=== PATIENT | female | born 2000 | race Caucasian/White ===

== ENCOUNTER 2024-09-12 17:02 | Emergency (ER) | payer BC, SELFPAY ==
--- NOTE | ~2024-09-12 | US_ITS ---
CLINICAL HISTORY: Epigastric pain. liver cbd panc only US abdomen limited Comparison: None Findings: The visualized pancreas is normal. The liver is normal in size and echotexture. There is no intrahepatic bile duct dilatation. The common duct is 3.1 mm in diameter. Status post cholecystectomy. Small cystic structure within the gallbladder fossa measuring 2.2 x 2.6 x 2.6 cm. There is no sonographic Quiles sign. The main portal vein is antegrade. IMPRESSION: Status post cholecystectomy. No evidence of intra or extrahepatic ductal dilation. A 2.6 cm cystic structure within the gallbladder fossa may represent remnant gallbladder or small ascites. No significant surrounding vascularity to suggest abscess however, not excluded. Clinically indicated, CT abdomen with contrast can be obtained for further evaluation. This document has been electronically signed by: Laxmi Love MD on 09/12/2024 19:15:08
--- NOTE | ~2024-09-12 | CT_ITS ---
CLINICAL HISTORY: Abd pain CT abdomen and pelvis with contrast Comparison: US - US ABDOMEN COMPLETE - 09/12/24 18:29 EDT Findings: No consolidation or effusion. Status post cholecystectomy. Remainder of the solid organs are within limits. Ultrasound demonstrated 2.6 cm cystic structure within the gallbladder fossa is likely the 2nd portion of the duodenum. No bowel obstruction, pneumoperitoneum, or pneumatosis. Pelvic contents unremarkable. Appendix is not definitely visualized however, no secondary signs of appendicitis. No acute fracture. IMPRESSION: No acute findings. Ultrasound demonstrated 2.6 cm cystic structure within the gallbladder fossa is likely the 2nd portion of the duodenum (Normal anatomy ). This document has been electronically signed by: Laxmi Love MD on 09/12/2024 21:13:59
[2024-09-12 17:12] VITALS: BP 154/89; PULSE 122; RESP 19; TEMP 36.6; O2SAT 98; BMI 24.4
--- NOTE | 2024-09-12 17:16 | ED.GENADULT ---
HPI - General Adult General Chief complaint: Nausea/Vomiting/Diarrhea Stated complaint: Vomiting every 30 Mins Time Seen by Provider: 09/12/24 18:22 History of Present Illness ED Provider: Dr. Montiel HPI narrative: 24 y/o F patient; without significant PMH; presents from home reporting NBNB nausea/vomiting, diarrhea, and RUQ abdominal pain for the last 3 days (started Friday09/10/2024). The patient denies: fever or chills, SOB, cough/congestion, known sick contacts. She denies recent travel. Hx cholecystectomy December 2023. She states she has been having ongoing GI symptoms since that time. She was seen by GI this month and had out-patient endoscopy/colonoscopy. She was told she has a hiatal hernia with mild gastric reflux, and started on Pantoprazole. She was told of her colonoscopy she may have IBS. She was started on an IBS medication which she states is not helping. She has also been seen at [facility] for an US Pelvis which she was told was reassuring. Related Data Allergies Allergy/AdvReac Type Severity Reaction Status Date / Time amoxicillin Allergy Rash Verified 09/12/24 17:15 silicone Allergy Rash Uncoded 09/12/24 17:15 Review of Systems Review of Systems: Yes all other systems are reviewed and are negative PMFSH Past Medical History Attestation statement: The following information was validated with the patient. Source: old records reviewed Physical Exam ED Vital Signs: Vital Signs - 24 hr 09/12/24 17:12 09/12/24 18:13 09/12/24 20:22 Temperature 98 F 98.7 F 99.4 F Pulse Rate 122 H 116 H 89 Respiratory Rate 19 18 16 Blood Pressure 154/89 H 124/86 114/77 Pulse Oximetry 98 97 97 Oxygen Delivery Method Room Air Room Air Room Air 09/12/24 21:54 09/12/24 21:55 Temperature 99.6 F 99.6 F Pulse Rate 107 H 107 H Respiratory Rate 18 18 Blood Pressure 103/63 103/63 Pulse Oximetry 100 100 Oxygen Delivery Method BMI result Body Mass Index 24.4 Patient is afebrile, tachycardic, and normotensive. Const General: cooperative and no acute distress HENMT Head: Yes normal to inspection and Yes atraumatic Eyes General: appearance normal, both eyes and all related structures Pupils: Equal, round and reactive pupils present EOM: EOMs intact bilaterally Neck Neck: Yes normal visual inspection, Yes full ROM, Yes supple and No tender Chest Chest palpation & inspection: normal inspection of the chest and normal palpation of entire chest wall Resp Effort & Inspection: normal respiratory effort, able to speak in complete sentences, no cough and no respiratory distress Auscultation: clear to auscultation bilaterally Cardio Rate: tachycardic Rhythm: regular rhythm Peripheral pulses: Peripheral pulses 2+ throughout GI Other: + RUQ abdominal tenderness Inspection: Yes normal to inspection, No Abdominal wall edema and No distended Palpation (GI): Soft to palpation, not firm, no guarding and not rigid Auscultation: normal bowel sounds Back/Spine/Pelvis Back: No back tenderness Neuro Cranial nerves: Yes Equal, round and reactive pupils present Course Course Course Narrative: 24 yold female presents to ED for abdominal pain nausea vomiting diarrhea since Friday. Patient denies any blood in stool. Patient denies any fever or chills. Positive for generalized abdominal pain. Labs ordered. Reevaluation(s) Reevaluation #1: Patient is afebrile, tachycardic, and normotensive. Reviewed diagnostic studies initiated in triage. Labs reviewed: Leukocytosis 21.3 with neutrophils 85.2. Hgb 17.1 Suspect some degree of dehydration and hemo-concentration. Bicarb 13. AST 289/ALT 209. Total bili 2.5. Lipase unremarkable Hcg negative. UA with trace ketones. LA 1.8. Negative betahydroxybuterate. Patient ordered for CT Abdomen/Pelvis. Providing 2L IVF. Providing droperidol for nausea. Plan to PO trial. CT Abdomen/Pelvis is unremarkable for acute pathology. Patient in summary has dehydration likely 2/2 to volume losses from nausea/vomiting/diarrhea. She received 2L IVF repletion. No baseline LFTs available for comparison. Patient tolerated the PO trial. I explained to the patient the emergency department did not find the cause of her GI symptoms today. She will need to continue her out-patient follow up, I recommended she call GI on Friday for a follow up appointment. Plan: Discharge to home with PCP and GI follow up Return precautions given Medications Administered Discontinued Medications Generic Name Dose Route Start Last Admin Trade Name Freq PRN Reason Stop Dose Admin Diphenhydramine HCl 12.5 mg 09/12/24 20:19 09/12/24 20:28 Diphenhydramine Hcl 50 Mg/Ml Vial IVPUSH 09/12/24 20:20 12.5 mg ONCE ONE Administration Droperidol 1.25 mg 09/12/24 20:19 09/12/24 20:28 Droperidol 5 Mg/2 Ml Vial IVPUSH 09/12/24 20:20 1.25 mg ONCE ONE Administration Sodium Chloride 1,000 mls @ 999 mls/hr 09/12/24 19:15 09/12/24 21:32 Ns IV 09/12/24 20:15 Infused .Q1H1M TAO Infusion Sodium Chloride 1,000 mls @ 999 mls/hr 09/12/24 19:30 09/12/24 21:32 Ns IV 09/12/24 20:30 Infused .Q1H1M TAO Infusion Iohexol 85 ml 09/12/24 19:29 09/12/24 19:29 Iohexol 350 Mg/Ml 100 Ml Infus..Btl IV 09/12/24 19:30 85 ml ONCE ONE Administration Ondansetron HCl 4 mg 09/12/24 17:45 09/12/24 17:47 Ondansetron Odt 4 Mg Tab.Rapdis TRANSLINGU 09/12/24 17:46 4 mg ONCE ONE Administration Medical Decision Making Lab Data 09/12/24 17:40 09/12/24 17:40 Labs: Lab Results 09/12/24 09/12/24 09/12/24 Range/Units 17:39 17:40 19:18 WBC 21.3 H (4.8-10.8) X10*3/uL RBC 5.54 H (4.20-5.50) X10*6/uL Hgb 17.1 H (12.0-16.0) g/dl Hct 47.7 H (37.0-47.0) % MCV 86.1 (80.0-98.0) fL MCH 30.9 (27.0-33.0) pg MCHC 35.8 H (31.0-35.0) g/dl RDW 13.1 (11.0-16.0) % Plt Count 253 (160-400) X10*3/uL MPV 9.9 (9.4-12.3) fL Immature Gran % (Auto) 0.5 H (0.0-0.4) % Neut % (Auto) 85.2 H (45-73) % Lymph % (Auto) 7.9 L (20-40) % [place] % (Auto) 5.5 (2-11) % Eos % (Auto) 0.6 (0-4) % Baso % (Auto) 0.3 (0-2) % Lymph # (Auto) 1.7 (1.2-4.9) X10*3/uL [place] # (Auto) 1.2 (0.1-1.2) X10*3/uL Eos # (Auto) 0.1 (0.0-0.4) X10*3/uL Baso # (Auto) 0.1 (0.0-0.2) X10*3/uL Abs Immat Gran (auto) 0.11 H (0.00-0.03) X10*3/uL Absolute Neuts (auto) 18.1 H (2.0-8.3) x10*3/uL Absolute Nucleated RBC 0.000 (0.0-0.012) X10*3/uL Nucleated RBC % (auto) 0.0 (0.0-0.2) /100WBC Sodium 139 (135-145) mmol/L Potassium 4.4 (3.3-5.1) mmol/L Chloride 111 H (96-108) mmol/L Carbon Dioxide 13 L (22-29) mmol/L Anion Gap 19 (12-20) BUN 10 (9-16) mg/dL Creatinine 0.75 (0.5-1.4) mg/dL Estim Creat Clear Calc 127.2 Estimated GFR > 60 Random Glucose 108 (60-115) mg/dL Lactic Acid 1.8 (0.5-2.0) mmol/L Calcium 9.5 (8.4-10.2) mg/dL Total Bilirubin 2.5 H (0.0-1.0) mg/dL Direct Bilirubin 0.6 H (0.0-0.5) mg/dL AST 289 H (5-31) U/L ALT 209 H (0-31) U/L Alkaline Phosphatase 132 H (39-117) U/L Total Protein 8.8 H (6.5-8.0) g/dL Albumin 4.5 (3.5-5.0) g/dL Lipase 29 (8-78) U/L Beta-Hydroxybutyrate 0.09 (0.02-0.27) mmol/L Beta HCG, Quant < 2 mIU/mL Urine Color Dark Yellow Urine Appearance Clear Urine pH 5.5 (5.0-9.0) Ur Specific [place] 1.025 (1.005-1.025) Urine Protein 30 (1+) H (Neg-Trace) mg/dL Urine Glucose (UA) Negative (Negative) mg/dL Urine Ketones Trace (Negative) mg/dL Urine Blood Small (1+) H (Negative) Urine Nitrite Negative (Negative) Ur Leukocyte Esterase Trace H (Negative) Urine RBC 6-10 H (0-2) /HPF Urine WBC 0-5 (0-5) /HPF Ur Squamous Epith Cells 6-10 (0-2) /HPF Urine Bacteria 1+ (None Seen) Hyaline Casts 3-5 (0-2) /LPF Urine Test NEGATIVE (NEGATIVE) Influenza Type A (PCR) NEGATIVE (Negative) Influenza Type B (PCR) NEGATIVE (Negative) RSV RNA Qual (PCR) NEGATIVE (Negative) SARS-CoV-2 RNA (RT-PCR) NEGATIVE (Negative) Radiology Impression Discussion of test interpretation with radiology: I have reviewed the radiologist's reading. Radiologist Impression: CLINICAL HISTORY: Epigastric pain. liver cbd panc only US abdomen limited Comparison: None Findings: The visualized pancreas is normal. The liver is normal in size and echotexture. There is no intrahepatic bile duct dilatation. The common duct is 3.1 mm in diameter. Status post cholecystectomy. Small cystic structure within the gallbladder fossa measuring 2.2 x 2.6 x 2.6 cm. There is no sonographic Quiles sign. The main portal vein is antegrade. IMPRESSION: Status post cholecystectomy. No evidence of intra or extrahepatic ductal dilation. A 2.6 cm cystic structure within the gallbladder fossa may represent remnant gallbladder or small ascites. No significant surrounding vascularity to suggest abscess however, not excluded. Clinically indicated, CT abdomen with contrast can be obtained for further evaluation. This document has been electronically signed by: Laxmi Love MD on 09/12/2024 19:15:08 Report Number: [id number]: Total DLP = 507.00 mGy-cm CLINICAL HISTORY: Abd pain CT abdomen and pelvis with contrast Comparison: US - US ABDOMEN COMPLETE - 09/12/24 18:29 EDT Findings: No consolidation or effusion. Status post cholecystectomy. Remainder of the solid organs are within limits. Ultrasound demonstrated 2.6 cm cystic structure within the gallbladder fossa is likely the 2nd portion of the duodenum. No bowel obstruction, pneumoperitoneum, or pneumatosis. Pelvic contents unremarkable. Appendix is not definitely visualized however, no secondary signs of appendicitis. No acute fracture. IMPRESSION: No acute findings. Ultrasound demonstrated 2.6 cm cystic structure within the gallbladder fossa is likely the 2nd portion of the duodenum (Normal anatomy ). This document has been electronically signed by: Laxmi Love MD on 09/12/2024 21:13:59 Discharge Plan Discharge Clinical Impression: Nausea & vomiting Patient Disposition: Home, Self-Care Instructions: Acute Nausea and Vomiting (ED) Additional Instructions: Please follow up with your primary doctor and GI doctor to discuss your recent emergency department visit and for re-evaluation. Interventions: ED Discharge Assessment Last Done: 09/12/24 21:55 Discharge Date/Time: 09/12/24 21:55 Print Language: Swedish
[2024-09-12 17:46] LABS: MANUAL DIFF FLAG NO
[2024-09-12] MEDS: Ondansetron ODT 4 MG TAB.RAPDIS TRANSLINGU (17:47)
[2024-09-12 17:48] LABS: Basophils Absolute Auto 0.1 X10*3/uL (0.0-0.2); Basophils Percent Auto 0.3 % (0-2); Eosinophils Absolute Auto 0.1 X10*3/uL (0.0-0.4); Eosinophils Percent Auto 0.6 % (0-4); Hematocrit 47.7 % (37.0-47.0); Hemoglobin 17.1 g/dl (12.0-16.0); Imm Gran Abs Auto 0.11 X10*3/uL (0.00-0.03); Imm Gran Pct Auto 0.5 % (0.0-0.4); Lymphocytes Absolute Auto 1.7 X10*3/uL (1.2-4.9); Lymphocytes Percent Auto 7.9 % (20-40); Mean Corpuscular HGB Conc 35.8 g/dl (31.0-35.0); Mean Corpuscular Hemoglobin 30.9 pg (27.0-33.0); Mean Corpuscular Volume 86.1 fL (80.0-98.0); Mean Platelet Volume 9.9 fL (9.4-12.3); Monocytes Absolute Auto 1.2 X10*3/uL (0.1-1.2); Monocytes Percent Auto 5.5 % (2-11); Neutrophils Absolute Auto 18.1 x10*3/uL (2.0-8.3); Neutrophils Percent Auto 85.2 % (45-73); Platelet Count 253 X10*3/uL (160-400); Red Blood Count 5.54 X10*6/uL (4.20-5.50); Red Cell Distribution Width 13.1 % (11.0-16.0); White Blood Count 21.3 X10*3/uL (4.8-10.8)
[2024-09-12 17:49] LABS: Appearance Urine Clear; Color Urine Dark Yellow; Glucose Urine UA Negative (Negative); Leukocyte Esterase Urine Trace (Negative); Nitrite Urine Negative (Negative); PH 5.5 (5.0-9.0); Specific Gravity - Urine 1.025 (1.005-1.025); UMIC TRIGGER UACC YES; Urine Blood Small (1+) (Negative); Urine Ketones Trace mg/dL (Negative); Urine Protein 30 (1+) mg/dL (Neg-Trace)
[2024-09-12 17:50] LABS: UPreg QC Valid YES; Urine Pregnancy NEGATIVE (NEGATIVE)
[2024-09-12 17:52] LABS: Bacteria Urine 1+ (None Seen); WBC Urine 0-5 /HPF (0-5)
[2024-09-12 18:10] LABS: Alanine Aminotransferase 209 U/L (0-31); Albumin Level 4.5 g/dL (3.5-5.0); Alkaline Phosphatase 132 U/L (39-117); Anion Gap 19 (12-20); Aspartate Amino Transferase 289 U/L (5-31); Bilirubin Total 2.5 mg/dL (0.0-1.0); Blood Urea Nitrogen 10 mg/dL (9-16); Calcium 9.5 mg/dL (8.4-10.2); Carbon Dioxide 13 mmol/L (22-29); Chloride 111 mmol/L (96-108); Creatinine Clr Calc Pharmacy 127.2; Estimated Glomerular Filt Rate > 60; Glucose Random 108 mg/dL (60-115); Lipase 29 U/L (8-78); Potassium 4.4 mmol/L (3.3-5.1); Sodium 139 mmol/L (135-145); Total Protein 8.8 g/dL (6.5-8.0)
[2024-09-12 18:13] VITALS: BP 124/86; PULSE 116; RESP 18; TEMP 37.1; O2SAT 97
[2024-09-12 18:16] LABS: HCG Quantitative < 2 mIU/mL
[2024-09-12 18:27] LABS: Influenza A PCR NEGATIVE (Negative); Influenza B PCR NEGATIVE (Negative); Resp Syncy Virus RNA Qual PCR NEGATIVE (Negative); SARS COV2 PCR INHOUSE NEGATIVE (Negative)
--- OUTSIDE RECORDS SUMMARY | 2024-09-12 18:27 | XMS_ITS | Patient Health Record ---
Author Organization [facility] Address [address] [place], [place] [id number] Care Team Providers Care Behavior Support Specialist Name Role Phone KAREY PATEL Primary Care Provider Allergies Allergen (clinical drug ingredient) Drug/Non Drug Allergy documented on EMR Reaction Allergy Type Onset Date Status amoxicillin Amoxicillin rash Drug Allergy Act stanislav Penicillin G Benzathine Unknown Drug Allergy Active Silicone Silicone rashes Allergy Active Results Component Value Reference Range Notes QUANTIFERON(R)-TB GOLD PLUS, 1 TUBE Reviewed date:08/02/2024 08:39:28 AM Interpretation: Performing Lab:[facility], [employer] [facility] [address] Montez Riley M.D. Notes/Report: 0 QUANTIFERON(R)-TB GOLD PLUS, 1 TUBE NEGATIVE NEGATIVE Negative test result. M. tuberculosis complex infection unlikely. NIL 0.03 MITOGEN-NIL >10.00 TB1-NIL 0.00 TB2-NIL <0.00 The Nil tube value reflects the background interferon gamma immune response of the patient's blood sample. This value has been subtracted from the patient's displayed TB and Mitogen results. Lower than expected results with the Mitogen tube prevent false-negative Quantiferon readings by detecting a patient with a potential immune suppressive condition and/or suboptimal pre-analytical specimen handling. The TB1 Antigen tube is coated with the M. tuberculosis-specific antigens designed to elicit responses from TB antigen primed CD4+ helper T-lymphocytes. The TB2 Antigen tube is coated with the M. tuberculosis-specific antigens designed to elicit responses from TB antigen primed CD4+ helper and CD8+ cytotoxic T-lymphocytes. For additional information, please refer to https://education.[employer]/faq/RDQ664 (This link is being provided for informational/ educational purposes only.) REFLEXIVE URINE CULTURE Reviewed date:07/29/2024 08:36:06 AM Interpretation: Performing Lab:[facility], [facility] [address] Montez Riley M.D. Notes/Report: 0; FASTING; 0; 0; 0; 0 REFLEXIVE URINE CULTURE NO C ULTURE INDICATED COPY(IES) SENT TO: Reviewed date:07/29/2024 03:32:51 PM Interpretation: Performing Lab: Notes/Report: 0; FASTING; 0; 0; 0; 0 COPY(IES) SENT TO: [email or web address] COPY TO [address] [address] TSH Reviewed date:07/29/2024 03:32:51 PM Interpretation: Performing Lab:[facility] [address] Montez Riley M.D. Notes/Report: 0; FASTING; 0; 0; 0; 0 TSH 2.48 Reference Range > or = 20 Years 0.40-4.50 Ranges First trimester 0.26-2.66 Second trimester 0.55-2.73 Third trimester 0.43-2.91 HEMOGLOBIN A1c Reviewed date:07/29/2024 08:36:06 AM Interpretation: Performing Lab:[facility] [address] Montez Riley M.D. Notes/Report: 0; FASTING; 0; 0; 0; 0 HEMOGLOBIN A1c 4.5 <5.7 % of total Hgb For the purpose of screening for the presence of diabetes: <5.7% Consistent with the absence of diabetes 5.7-6.4% Consistent with increased risk for diabetes (prediabetes) > or =6.5% Consistent with diabetes This assay result is consistent with a decreased risk of diabetes. Currently, no consensus exists regarding use of hemoglobin A1c for diagnosis of diabetes in children. According to [place] Diabetes Association (ADA) guidelines, hemoglobin A1c <7.0% represents optimal control in non- diabetic patients. Different metrics may apply to specific patient populations. Standards of Medical Care in Diabetes(ADA). URINALYSIS, COMPLETE W/REFLE X TO CULTURE Reviewed date:07/29/2024 08:36:05 AM Interpretation: Performing Lab:[facility], [employer] [facility] [address] Montez Riley M.D. Notes/Report: 0; FASTING; 0; 0; 0; 0 COLOR YELLOW YELLOW APPEARANCE CLEAR CLEAR SPECIFIC GRAVITY 1.007 1.001-1.035 PH 6.5 5.0-8.0 GLUCOSE NEGATIVE NEGATIVE BILIRUBIN NEGATIVE NEGATIVE KETONES NEGATIVE NEGATIVE OCCULT BLOOD NEGATIVE NEGATIVE PROTEIN NEGATIVE NEGATIVE NITRITE NEGATIVE NEGATIVE LEUKOCYTE ESTERASE NEGATIVE NEGATIVE WBC NONE SEEN < OR = 5 /HPF RBC NONE SEEN < OR = 2 /HPF SQUAMOUS EPITHELIAL CELLS 0-5 < OR = 5 /HPF BACTERIA NONE SEEN NONE SEEN /HPF HYALINE CAST NONE SEEN NONE SEEN /LPF NOTE This urine was analyzed for the presence of WBC, RBC, bacteria, casts, and other formed elements. Only those elements seen were reported. CBC (INCLUDES DIFF/PLT) Reviewed date:07/29/2024 08:36:05 AM Interpretation: Performing Lab:[facility], [employer] [facility] [address] Montez Riley M.D. Notes/Report: 0; FASTING; 0; 0; 0; 0 WHITE BLOOD CELL COUNT 10.1 3.8-10.8 Thousand/ uL RED BLOOD CELL COUNT 5.21 3.80-5.10 Million/uL HEMOGLOBIN 16.3 11.7-15.5 g/dL HEMATOCRIT 47.2 35.0-45.0 % MCV 90.6 80.0-100.0 fL MCH 31.3 27.0-33.0 pg MCHC 34.5 32.0-36.0 g/dL For adults, a slight decrease in the calculated MCHC value (in the range of 30 to 32 g/dL) is most likely not clinically significant; however, it should be interpreted with caution in correlation with other red cell parameters and the patient's clinical condition. RDW 12.6 11.0-15.0 % PLATELET COUNT 221 140-400 Thousand/uL MPV 10.5 7.5-12.5 fL ABSOLUTE NEUTROPHILS 5444 4002-5888 cells/uL ABSOLUTE LYMPHOCYTES 3939 850-3900 cells/uL ABSOLUTE MONOCYTES 576 200-950 cells/uL ABSOLUTE EOSINOPHILS 91 15-500 cells/uL ABSOLUTE BASOPHILS 51 0-200 cells/uL NEUTROPHILS 53.9 LYMPHOCYTES 39.0 MONOCYTES 5.7 EOSINOPHILS 0.9 BASOPHILS 0.5 COMPREHENSIVE METABOLIC PANE L Reviewed date:07/29/2024 03:32:50 PM Interpretation: Performing Lab:[facility], [employer] [address] Montez Riley M.D. Notes/Report: 0; FASTING; 0; 0; 0; 0 GLUCOSE 88 65-99 mg/dL Fasting reference interval UREA NITROGEN (BUN) 10 7-25 mg/dL CREATININE 0.64 0.50-0.96 mg/dL EGFR 129 > OR = 60 mL/min/1.73m2 BUN/CREATININE RATIO SEE NOTE: 6-22 (calc) Not Reported: BUN and Creatinine are within reference range. SODIUM 136 135-146 mmol/L POTASSIUM 3.8 3.5-5.3 mmol/L CHLORIDE 104 98-110 mmol/L CARBON DIOXIDE 23 20-32 mmol/L CALCIUM 9.3 8.6-10.2 mg/dL PROTEIN, TOTAL 8.0 6.1-8.1 g/dL ALBUMIN 4.7 3.6-5.1 g/dL GLOBULIN 3.3 1.9-3.7 g/dL (calc) ALBUMIN/GLOBULIN RATIO 1.4 1.0-2.5 (calc) BILIRUBIN, TOTAL 1.8 0.2-1.2 mg/dL ALKALINE PHOSPHATASE 89 31-125 U/L AST 19 10-30 U/L ALT 28 6-29 U/L LIPID PANEL WITH REFLEX TO D IRECT LDL Reviewed date:07/29/2024 03:32:50 PM Interpretation: Performing Lab:[facility] [address] Montez Riley M.D. Notes/Report: 0; FASTING; 0; 0; 0; 0 CHOLESTEROL, TOTAL 171 <200 mg/dL HDL CHOLESTEROL 37 > OR = 50 mg/dL TRIGLYCERIDES 98 <150 mg/dL LDL-CHOLESTEROL 114 Reference range: <100 Desirable range <100 mg/dL for primary prevention; <70 mg/dL for patients with CHD or diabetic patients with > or = 2 CHD risk factors. LDL-C is now calculated using the Melony calculation, which is a validated novel method providing better accuracy than the Friedewald equation in the estimation of LDL-C. Blake HERNANDEZ et al. RENEE. 2013;310(19): 9863-7787 (http://education.[employer]/faq/EKC881) CHOL/HDLC RATIO 4.6 <5.0 (calc) NON HDL CHOLESTEROL 134 <130 mg/dL (calc) For patients with diabetes plus 1 major ASCVD risk factor, treating to a non-HDL-C goal of <100 mg/dL (LDL-C of <70 mg/dL) is considered a therapeutic option. COPY(IES) SENT TO: Reviewed date:08/02/2024 08:39:28 AM Interpretation: Performing Lab: Notes/Report: 0 COPY(IES) SENT TO: [email or web address] COPY TO [address] [address] Reason For Referral Diagnosis 1 Generalized abdomina l pain (R10.84) Referral Organization [facility] Referring Provider First Name [facility] Referring Provider Last Name JANICE Y Referring Provider Speciality [facility] ctice Referred Provider Jolie Heath Referred Provider Specialty Gastroentero logy General Notes had bleeding per rec dereje with clots. Referral Priority Routine Reason Bleeding Per rectum , with clots Diagnosis 1 Noninfective gastroe nteritis and colitis, unspecified (K52.9) Diagnosis 2 Hemorrhage of anus a nd rectum (K62.5) Referral Organization [facility] Referring Provider First Name [facility] Referring Provider Last Name JANICE Y Referring Provider Speciality [facility] ctice Referred Provider Ginny Celeste Referred Provider Specialty Gastroentero logy Referral Priority Routine Medications Medication SIG (Take, Route, Frequency, Duration) Notes Start Date End Date Status medroxyPROGESTERone Acetate 150 MG/ML 1 ML INJECTED ONCE EVERY 3 MONTHS INTRAMUSCULAR for 84 Active Pantoprazole Sodium 20 MG 1 tablet Orall y Once a day Active Lexapro 10 MG 1 tablet Orally Once a day Active Immunizations Vaccine Route Administration Date Status Comme [facility] Mercaux-Pfizer Unknown 08/25/2020 Administered Covid-Pfizer Unknown 09/15/2020 Administered Influenza, seasonal, injectable, preservative free, 3 yrs and above IM Intramuscular 03/14/2021 Administered Influenza, seasonal, injectable, preservative free, 3 yrs and above IM Intramuscular 03/10/2023 Administered Influenza, seasonal, injectable, preservative free, 3 yrs and above IM Intramuscular 03/18/2024 Administered Tdap Unknown 07/25/2015 Administered Social History Tobacco Use: Social History Observation Description Date Details (start date - stop date) Never Smoker NA - NA Tobacco Use/Smoking Question Answer Notes Are you a nonsmoker Alcohol Screen (Audit-C) Question Answer Notes Did you have a drink containing alcohol in the p ast year? No Points 0 Interpretation Negative Sexual History Question Answer Notes Had sex in the past 12 months (vaginal, oral, or anal)? Yes with Men only Use protection? Yes How often? All of the time Prevention strategies discussed: Other Have you ever had a Sexually transmitted disease ? No Section Notes: occasional etoh occasional etoh occasional etoh Problems Problem Type SNOMED Code ICD Code Onset Dates Problem Status W/U Status Risk Notes Problem Non-toxic goiter (047762896) Nontoxic goiter, unspecified (E04.9) Active confirmed Problem Autoimmune thyroiditis (49728937) Autoimmune thyroiditis (E06.3) Active confirmed Problem Adjustment disorder with depressed mood (59630317) Adjustment disorder with depressed mood (F43.21) Active confirmed Problem Raynaud's disease (029529123) Raynaud's syndrome without gangrene (I73.00) Active confirmed Problem Interferon gamma assay positive (715407771) Nonspecific reaction to cell mediated immunity measurement of gamma interferon antigen response without active tuberculosis (R76.12) Active confirmed Vital Signs Heart Rate 95 /min 08/03/2024 Temperature 98 degrees Fahrenheit 08/03/2024 Oximetry 98 % 08/03/2024 Blood pressure diastolic 74 mm Hg 08/03/2024 Height 68.5 in 08/03/2024 Blood pressure systolic 108 mm Hg 08/03/2024 Weight 160.6 lbs 08/03/2024 BMI 24.06 kg/m2 08/03/2024 Encounters Encounter Location Date Provider Diagnosis [facility] [address] [place], [place] [id number] 09/16/2023 GAYETHRI NARAYANSWAMY [facility] [address] [place], [place] [id number] 12/12/2023 GAYETHRI NARAYANSWAMY Encounter for contraceptive management, unspecified Z30.9 [facility] [address] [place] [id number] 02/19/2024 GAYETHRI NARAYANSWAMY [facility] [address] [place] [id number] 03/09/2024 GAYETHRI NARAYANSWAMY Encounter for surveillance of contraceptives, unspecified Z30.40 [facility] [address] [place] [id number] 03/18/2024 GAYETHRI NARAYANSWAMY Encounter for immunization Z23 [facility] [address] [place] [id number] 06/09/2024 GAYETHRI NARAYANSWAMY Encounter for surveillance of contraceptives, unspecified Z30.40 [facility] [address] [place] [id number] 08/03/2024 GAYETHRI NARAYANSWAMY Encounter for general adult medical examination without abnormal findings Z00.00 ; Encounter for screening for depression Z13.31 ; Body mass index [BMI] 24.0-24.9, adult Z68.24 ; Hemorrhage of anus and rectum K62.5 and Noninfective gastroenteritis and colitis, unspecified K52.9 [facility] [address] [place], [place] [id number] 09/10/2024 GAYETHRI NARAYANSWAMY Encounter for contraceptive management, unspecified Z30.9 [facility] [address] [place] [id number] 04/21/2024 GAYETHRI NARAYANSWAMY [facility] [address] [place] [id number] 06/14/2024 GAYETHRI NARAYANSWAMY [facility] [address] [place] [id number] 06/16/2024 GAYETHRI NARAYANSWAMY [facility] [address] [place], [place] [id number] 07/28/2024 KAREY PATEL Encounter for general adult medical examination without abnormal findings Z00.00 and Nonspecific reaction to cell mediated immunity measurement of gamma interferon antigen response without active tuberculosis R76.12 [facility] [address] [place], [place] [id number] 08/02/2024 KAREY PATEL [facility] [address] [facility] [id number] 08/04/2024 KAREY PATEL Assessments Encounter Date Diagnosis (ICD Code) Assessment Notes Treatment Notes Treatment Clinical Notes Section Notes 12/12/2023 Encounter for contraceptive management, unspecified (ICD-10 - Z30.9) 03/09/2024 Encounter for surveillance of contraceptives, unspecified (ICD-10 - Z30.40) 03/18/2024 Encounter for immunization (ICD-10 - Z23) 06/09/2024 Encounter for surveillance of contraceptives, unspecified (ICD-10 - Z30.40) 07/28/2024 Encounter for general adult medical examination without abnormal findings (ICD-10 - Z00.00) 08/03/2024 Encounter for general adult medical examination without abnormal findings (ICD-10 - Z00.00) Well Visit, Ages 18 to 65: Care Instructions material was published Advised pt to exercise daily and eat a healthy diet. Advised pt to self exam breast once a month after . 08/03/2024 Encounter for screening for depression (ICD-10 - Z13.31) Learning About Depression Screening material was published Advised pt to exercise daily and eat a healthy diet. Advised pt to self exam breast once a month after . 09/10/2024 Encounter for contraceptive management, unspecified (ICD-10 - Z30.9) 08/03/2024 Body mass index [BMI] 24.0-24.9, adult (ICD-10 - Z68.24) Advised pt to exercise daily and eat a healthy diet. Advised pt to self exam breast once a month after . 07/28/2024 Nonspecific reaction to cell mediated immunity measurement of gamma interferon antigen response without active tuberculosis (ICD-10 - R76.12) 08/03/2024 Hemorrhage of anus and rectum (ICD-10 - K62.5) Advised pt to exercise daily and eat a healthy diet. Advised pt to self exam breast once a month after MC. 08/03/2024 Noninfective gastroenteritis and colitis, unspecified (ICD-10 - K52.9) Colitis: Care Instructions material was published Advised to eat soft , bland fiber rich diet. Advised pt to exercise daily and eat a healthy diet. Advised pt to self exam breast once a month after MC. Plan Of Treatment Pending Test Test Name Order Date Ultrasound : Abdomen, upper 07/26/2021 Ultrasound : Thyroid Sonography B-Scan 0 07/26/2021 HIV 1/2 ANTIGEN/ANTIBODY,FOURTH GENERATI ON W/RFL 03/18/2022 LIPID PANEL WITH REFLEX TO DIRECT LDL LIPID PANEL WITH REFLEX TO DIRECT LDL COMPREHENSIVE METABOLIC PANEL 03/18/2022 COMPREHENSIVE METABOLIC PANEL 07/21/2023 COMPREHENSIVE METABOLIC PANEL 03/30/2021 CBC (INCLUDES DIFF/PLT) 03/30/2021 CBC (INCLUDES DIFF/PLT) 03/18/2022 CBC (INCLUDES DIFF/PLT) 07/21/2023 URINALYSIS, COMPLETE W/REFLEX TO CULTURE 07/21/2023 URINALYSIS, COMPLETE W/REFLEX TO CULTURE 03/18/2022 RPR (DX) W/REFL TITER AND CONFIRMATORY T ESTING 03/18/2022 HEMOGLOBIN A1c 03/18/2022 HEMOGLOBIN A1c 07/21/2023 HEPATITIS B SURFACE ANTIGEN W/REFL CONFI RM 03/18/2022 HEPATITIS C AB W/REFL TO HCV RNA, QN, PC R 03/18/2022 TSH 03/18/2022 TSH 07/21/2023 TSH W/REFLEX TO FT4 03/30/2021 CHLAMYDIA/N. GONORRHOEAE RNA, TMA 2021 Insurance Providers Payer Name Payer Address Payer Phone Subscriber Number Group Number Insured Name Patient Relationship to Insured Coverage Start Date Coverage End Date [facility] [address] [place], [place] [id number] Elvira Ruffin Self - patient is the insured Medications Administered Medication Instructions Date of Administration Dosage Notes depo 12/14/2020 1 mL depo 03/14/2021 0.5 mL depo 06/13/2021 0.5 mL depo 09/13/2021 0.5 mL depo 12/13/2021 0.5 mL depo 03/18/2022 0.5 mL depo 06/17/2022 0.5 mL depo 09/13/2022 0.5 mL depo 12/06/2022 0.5 mL depo 03/10/2023 0.5 mL depo 06/11/2023 0.5 mL depo 09/16/2023 0.5 mL depo 12/12/2023 0.5 mL depo 03/09/2024 0.5 mL depo 06/09/2024 0.5 mL depo 09/10/2024 0.5 mL Medical (General) History Medical History History ICD Code Nonrheumatic mitral (valve) prolapse I34 .1 Autoimmune thyroiditis E06.3 Adjustment disorder with depressed mood F43.21 Surgical History Surgery Date(Month/Year) face surgery for broken left arm gall bladder 2023
--- OUTSIDE RECORDS SUMMARY | 2024-09-12 18:27 | XMS_ITS | Encounter Summary ---
Author Organization [facility] Address [address] [place] [address] Care Team Providers Care Topography Technician Name Role Phone Rao Katy HOLMAN Primary Care Provider Aki Liang MD Unavailable [phone] Katarina Ma DO Unavailable [phone] Aki Reyes MD Unavailable [phone] CreoleKatarina rubio DO Unavailable [phone] Pcp, No Primary Care Provider Unavailabl e Giuseppe Lee MD Primary Care Provider Giuseppe Lee MD Unavailable [phone] Giuseppe Lee MD Unavailable [phone] Giuseppe Lee MD Unavailable [phone] Giuseppe Lee MD Unavailable [phone] Encounter Details Date Type Department Care Team (Late st Contact Info) Description 04/06/2018 Scanned Document [facility] [address] [place] [address] Provider, Generic Social History Tobacco Use Types Packs/Day Years Used Date Smoking Tobacco: Never Smokeless Tobacco: Never Alcohol Use Standard Drinks/Week Comments No 0 (1 standard drink = 0.6 oz pur e alcohol) AUDIT-C Answer Date Recorded Frequency of Alcohol Consumption Never 04/06/2018 Average Number of Drinks Not on file 018 Frequency of Binge Drinking Not on file 03/19 Comments No Sex and Gender Information Value Date Recorded Sex Assigned at Female 2022 11:34 AM EDT Legal Sex Female 8:13 AM EDT Gender Identity Female 2022 11:34 AM EDT Sexual Orientation Heterosexual (straight) 08/13 11:34 AM EDT documented as of this encounter Functional Status documented as of this encounter Plan of Treatment Not on file documented as of this encounter Visit Diagnoses Not on filedocumented in this encounter Care Teams Topography Technician Relationship Specialty Start Date End Date Katy Yeh APRN PCP - General Family Medicine 04/06/18 03/15/20 Aki Reyes MD [address] [place] [address] PCP - [employer] Attributed 02/16/19 05/18/19 Katarina Ma DO [address] [place] [address] PCP - [employer] Attributed 05/19/19 08/17/19 Aki Reyes MD [address] [place] [address] PCP - [employer] Attributed 08/18/19 11/16/19 Katarina Ma DO [address] [place] [address] PCP - [employer] Attributed 11/17/19 08/16/20 Pcp, No PCP - General General Medicine 05/29/20 07/31/20 [place] [address] [place] [address] PCP - General Family Medicine 08/01/20 Giuseppe Lee MD [address] [facility] [place] [address] PCP - [employer] Attributed 08/17/20 04/17/21 Giuseppe Lee MD [address] [place] [address] PCP - [place] [employer] Attributed 09/16/21 10/16/21 Giuseppe Lee MD [address] [place] [address] PCP - [place] [employer] Attributed 11/16/21 03/18/22 Giuseppe Lee MD [address] [place] [address] PCP - [place] [employer] Attributed 05/19/22 documented as of this encounter
--- OUTSIDE RECORDS SUMMARY | 2024-09-12 18:27 | XMS_ITS | Clinical Summary ---
Author Organization [facility] Address [address] [place] [address] Phone Care Team Providers Care Customer Development Manager Name Role Phone Giuseppe Lee MD Primary Care Provider Allergies Active Allergy Reactions Criticality Noted Date Comments Adhesive Tape-Silicones Rash Medium 07/31/2024 Amoxicillin Rash Medium 07/31/2024 Medications escitalopram (LEXAPRO) 10 mg tablet Take 1 tablet (10 mg total) by mouth 1 (one) time each day. Active Active Problems Problem Noted Date Diagnosed Date Rectal bleeding 07/31/2024 Encounters Date Type Department Care Team Description 07/31/2024 10:22 AM EDT - 07/31/2024 12:07 PM EDT Emergency [facility] Emergency [address] [place] [address] Angel Roe MD Rectal bleeding (Primary Dx) Discharge Disposition: Home or Self Care from Last 3 Months Immunizations Name Administration Dates Next Due Pfizer SARS-CoV-2 COVID-19, mRNA, LNP-S, preservative free 09/15/2020,08/25/2020 Social History Tobacco Use Types Packs/Day Years Used Date Smoking Tobacco: Never Assessed Comments Unknown Sex and Gender Information Value Date Recorded Sex Assigned at Not on file Legal Sex Female 7:54 PM EST Gender Identity Not on file Sexual Orientation Not on file Obstetrics History Last Filed Vital Signs Vital Sign Reading Time Taken Comments Blood Pressure 129/90 07/31/2024 10:17 AM EDT Pulse 85 07/31/2024 10:17 AM EDT Temperature 37.2 ??C (99 ??F) 07/31/2024 10:17 AM EDT Respiratory Rate 16 07/31/2024 10:17 AM EDT Oxygen Saturation 99% 07/31/2024 10:17 AM EDT Inhaled Oxygen Concentration - - Weight 65.3 kg (144 lb) 02/04/2023 1:16 PM EDT Height 175.3 cm (5' 9 ) 02/04/2023 1:16 PM EDT Body Mass Index 21.27 02/04/2023 1:16 PM EDT Plan of Treatment Health Maintenance Due Date Last Done Comments Gonorrhea/Chlamydia Screening 2002 HPV Vaccines (1 - Risk 3-dos e series) 2013 Meningococcal B Vaccine (1 o f 2 - Standard) 2018 COVID-19 Vaccine (3 - Pfizer risk series) 10/13/2020 09/15/2020, 08/25/2020 Hepatitis B Vaccines (1 of 3 - 19+ 3-dose series) 2021 Pneumococcal Vaccine: Pediatrics (0 to 5 Years) and At-Risk Patients (6 to 64 Years) (1 of 2 - PCV) 2021 Depression Screening 04/20/2022 HIV Screening 04/20/2022 Hepatitis C Screening 04/20/2022 Social Influencers of Health Screening 04/20/2022 Cervical Cancer Screening: P ap Smear 08/14/2023 DTaP,Tdap,and Td Vaccines (2 - Td or Tdap) 07/24/2025 07/25/2015 Meningococcal ACWY Vaccine Completed 04/07/2019 Influenza Vaccine Completed 03/18/2024, 03/10/2023, 03/14/2021 HIB Vaccines Aged Out No longer eligi ble based on patient's age to complete this topic Hepatitis A Vaccines Aged Out No long er eligible based on patient's age to complete this topic IPV Vaccines Aged Out No longer eligi ble based on patient's age to complete this topic MMR Vaccines Aged Out No longer eligi ble based on patient's age to complete this topic RSV Immunization Patients Under 20 months Aged Out No longer eligible b ased on patient's age to complete this topic Varicella Vaccines Aged Out No longer eligible based on patient's age to complete this topic Procedures Procedure Name Priority Date/Time Associated Diagnosis Comments POCT VENOUS NA, K, HH Routine 07/31/2024 11:18 AM EDT from Last 3 Months Results * POCT VENOUS NA, K, HH (07/31/2024 11:18 AM EDT) Sodium Venous POCT 142 135 - 145 mmol/L 07/31/2024 11:20 AM EDT [facility] Potassium Venous POCT 4.1 3.5 - 5.1 mmol/L 07/31/2024 11:20 AM EDT [facility] Hemoglobin Venous POCT 15.0 12.5 - 16.0 g/dL 07/31/2024 11:20 AM EDT [facility] Hematocrit Venous POCT 44 37 - 47 % 07/31/2024 11:20 AM EDT [facility] Blood Venous blood specimen / Unknown 07/31/2024 11:18 AM EDT 07/31/2024 11:21 AM EDT us Angel Roe MD LAB POINT OF CARE TE ST DOCKED DEVICE UNSOLICITED RESULTS Final Result [facility] [address] [place] [address], from Last 3 Months Insurance * Guarantor: Elvira Lizarraga Account Type Relation to Patient Date of Phone Billing Address Personal/Family Self 2000 [address] [place] [address] [place] ([facility]) Care Teams Customer Development Manager Relationship Specialty Start Date End Date Giuseppe Lee MD [address] [place] [address] PCP - General Family Medicine 07/31/24
--- OUTSIDE RECORDS SUMMARY | 2024-09-12 18:27 | XMS_ITS | Data Portability ---
Author Organization [place] - [facility]'s [facility], [facility] Address [address] [place] [address] Care Team Providers Care Lodging Facilities Manager Name Role Phone KAREY PATEL Primary Care Provider Saida vailable Assessment Encounter Date Assessment Date Assessment LastModified by Organization Details LastModified Time 08/07/2018 08/07/2018 17-year-old G0 presents for pill check. BP within normal limits. ACHES reviewed again. Discussed condom use when becoming sexually active for the prevention of STDs. Will continue her lo Loestrin FE. TOTAL TIME 10 MIN Return annually for well woman care Not available 08/07/2018 16:17:07 05/10/2019 05/10/2019 18-year-old G0 presents for annual. Basic physical exam WNL, the patient declined a pelvic exam today. Breast self-awareness/ breast exams discussed Aches reviewed, refill for OCP sent Return annually for well care [email or web address] Not available 05/10/2019 13:15:51 05/21/2023 05/21/2023 22 year old female presents for her annual well woman exam HIGH WIRE ARTIST exam WNL, internal pelvic exam deferred GC/CT collected Discussed recurrent vaginitis and microbiota. Reviewed boric acid and proflora gel (will call if proflora desired). Depo for control; discussed weight gain with this method RTO annually [email or web address] Not available 05/21/2023 11:26:21 04/27/2024 04/27/2024 Unclear etiology for her current intermittent pelvic pain, but suspect some level og GI involvement as she is having stool changes and diffuse abdominal pain as well. No palpable abnormality on pelvic exam. Reviewed possibility of infection or ovarian cyst contributing to her symptoms. Vaginal swab done and she will be called with abnormal results. Reviewed ovarian cysts can be common and typically resolve without intervention but discussed need for ED evaluation for severe pain nausea/vomiting . If her symptoms become more consistent, would consider pelvic imaging here as outpatient. [email or web address] Not available 04/27/2024 12:46:41 06/18/2024 06/18/2024 23 year old female presents for her annual well woman exam HIGH WIRE ARTIST exam WNL Pap collected with GC/CT Persistent RLQ pain; TVUS ordered Recurrent BV; Recommended oral probiotics and vaginal boric acid for prevention. Given paper on using boric acid safely. RTO annually [email or web address] Not available 06/18/2024 16:28:42 Plan of Treatment Reminders Order Date Submit Date Provider Last Modified By Organization Details Last Modified Time Details Appointments None recorded. Lab pap, LB + HPV 2024 025 [facility], [address] [place] [address], [id number] 5 09:34:06 bacterial vaginosis + vaginitis panel, vaginal 2023 024 [facility], [address] [place] [address], [id number] 4 10:05:01 CT + NG DNA, PCR, unspecified specimen 2023 024 [facility], [address] [place] [address], [id number] 4 09:08:02 Referral None recorded. Procedures None recorded. Surgeries None recorded. Imaging None recorded. Medication Orders Lo Loestrin Fe 1 mg-10 mcg (24)/10 mcg (2) tablet 2018 019 [email or web address] [id number], [address] [place], [address], 4 10:59:16 Patient TargetsNo targets recorded. Patient Instructions Encounter Date Encounter Id Patient Instructions Last Modified By Organization Details Last Modified Time 05/10/2019 [id number] Counseled regarding prevention of STD's/ Counseled regarding contraceptive options. Offered condoms. Discussed avoiding domestic violence/abusive relationships and coercion. Counseled regarding HPV vaccine, Elvira has had her shots. Advised avoidance of tobacco, alcohol and drugs. [email or web address] Not available 05/10/2019 13:16:48 05/21/2023 [id number] Counseled regarding prevention of STD's/ Counseled regarding contraceptive options. BSA reviewed [email or web address] Not available 05/21/2023 11:25:41 Reason for Referral None Reported. Results Created Date Observation Date Name Description Value Unit Range Abnormal Flag Note LastModifiedBy Organization Detail LastModifiedTime 05/21/19 24 05/21/2023 CHLAM YDIA/ GONOR RHOEA E RNA, TMA neisseria gonorrhoeae RNA, tma Negati ve negati ve The perfo rmanc e of endoc ervic al, vagin al, and male ureth ral swab speci mens, male and femal e urine speci mens, and Prese rvCyt Solut ion liqui d Pap speci mens has not been evalu ated in adole scent s less than 16 years of age. Not Available [facility] [address] [place], [address] 05/22/2023 09:08:02 05/21/19 24 05/21/2023 CHLAM YDIA/ GONOR RHOEA E RNA, TMA chlamydia trachomatis RNA, tma Negati ve negati ve The perfo rmanc e of endoc ervic al, vagin al, and male ureth ral swab speci mens, male and femal e urine speci mens, and Prese rvCyt Solut ion liqui d Pap speci mens has not been evalu ated in adole scent s less than 16 years of age. Not Available [facility] [address] [place], [address] 05/22/2023 09:08:02 04/27/20 24 04/27/2024 ADVAN ADILENE BACTE RIAL VAGIN OSIS (BV), TMA adv bacterial vaginosis (bv), tma Positi ve negati ve abnormal Not Available [facility] [address] [place], [address] 04/28/2024 10:05:01 04/27/20 24 04/27/2024 ADVAN ADILENE SANDRA DA VAGIN ITIS (CV)/ TRICH OMONA S VAGIN TINA (TV), TMA mathieu species Negati ve negati ve Not Available [facility] [address] [place], [address] 04/28/2024 10:05:02 04/27/20 24 04/27/2024 ADVAN ADILENE SANDRA DA VAGIN ITIS (CV)/ TRICH OMONA S VAGIN TINA (TV), TMA mathieu glabrata Negati ve negati ve Not Available [facility] [address] [place], [address] 04/28/2024 10:05:02 04/27/20 24 04/27/2024 ADVAN ADILENE SANDRA DA VAGIN ITIS (CV)/ TRICH OMONA S VAGIN TINA (TV), TMA trichomonas vaginalis (TV), tma Negati ve negati ve Not Available [facility] [address] [place], [address] 04/28/2024 10:05:02 04/27/20 24 04/27/2024 CHLAM YDIA/ GONOR RHOEA E RNA, TMA neisseria gonorrhoeae RNA, tma Negati ve negati ve The perfo rmanc e of endoc ervic al, vagin al, and male ureth ral swab speci mens, male and femal e urine speci mens, and Prese rvCyt Solut ion liqui d Pap speci mens has not been evalu ated in adole scent s less than 16 years of age. Not Available [facility] [address] [place], [address] 04/28/2024 10:05:02 04/27/20 24 04/27/2024 CHLAM YDIA/ GONOR RHOEA E RNA, TMA chlamydia trachomatis RNA, tma Negati ve negati ve The perfo rmanc e of endoc ervic al, vagin al, and male ureth ral swab speci mens, male and femal e urine speci mens, and Prese rvCyt Solut ion liqui d Pap speci mens has not been evalu ated in adole scent s less than 16 years of age. Not Available [facility] [address] [place], [address] 04/28/2024 10:05:02 06/18/19 25 06/18/2024 THINP REP PAP TEST (IMAG ER) WITH HPV REFLE X, GC/CH LAMYD IA report Report Final Gynec ologi jese Cytol ogy Repor t ----- ----- ----- ----- ----- ----- ----- ----- ----- ----- ----- ----- ThinP rep Pap Test with HPV Refle x, CLIFTON/Ch michael ia SPECI MEN ADEQU ACY: SATIS FACTO RY FOR EVALU ATION ; ENDOC ERVIC AL/TR ANSFO RMATI ON ZONE COMPO NENT ABSEN T/INS [facility] IENT . INTER PRETA TION: NEGAT NICOLLE FOR INTRA EPITH ELIAL LESIO N OR ZINA TANNER . React nicolle cellu abelardo lange es assoc iated with infla mmati on Elect ramya Yoo d: Palak Walters (ASCP ) Elect ramya Yoo d: Ela Plaza MD ----- ----- ----- ----- ----- ----- ----- ----- ----- ----- ----- ----- CLINI JESE INFOR MATIO N: LMP: NG Clini jese Histo ry: NG Biops y Date: NG Speci men Sourc e: Cervi x, Endoc ervix Previ ous Pap Date: NG CPT Codes : 26739 , 04715 ICD Codes : Z01.4 19 Not Available [facility] [address] [place], [address] 06/29/2024 09:34:06 06/18/19 25 06/18/2024 CHLAM YDIA TRACH OMATI S RNA, TMA chlamydia trachomatis RNA, tma Negati ve negati ve The perfo rmanc e of endoc ervic al, vagin al, and male ureth ral swab speci mens, male and femal e urine speci mens, and Prese rvCyt Solut ion liqui d Pap speci mens has not been evalu ated in adole scent s less than 16 years of age. Not Available [facility] [address] [place], [address] 06/29/2024 09:34:40 06/18/19 25 06/18/2024 NEISS ERIA GONOR RHOEA E RNA, TMA neisseria gonorrhoeae RNA, tma Negati ve negati ve The perfo rmanc e of endoc ervic al, vagin al, and male ureth ral swab speci mens, male and femal e urine speci mens, and Prese rvCyt Solut ion liqui d Pap speci mens has not been evalu ated in adole scent s less than 16 years of age. Not Available [facility] [address] [place], [address] 06/29/2024 09:34:41 06/28/19 25 06/28/2024 US, pelvi s, trans abdom inal + trans vagin al RAD [email or web address] Not Available 07/01/2024 18:32:20 Result Notes None recorded. Problems Name Problem SNOMED Code Status Onset Date Resolution Date Notes Provider Name and Address Organization Details Recorded Time Anxiety 57976652 Active 025 lexapro in 2024 JENNA WEST CNM 175 [facility], [address] [place] [address], [phone] , [facility] 16:26:40 Problem Notes None recorded. Procedures Surgical History Date Name Laterality Status Provider Name and Address Organization Details Recorded Time 06/18/19 25 Date of [facility] 16:11:28 12/18/19 24 cholecystectomy completed Yumiko Potash [facility] 04/27/2024 12:00:50 05/19/19 24 Cholecystectomy completed Yumiko Potash [facility] 06/18/2024 15:59:38 Orthopedic Surgery completed TAD PUGH LPN 175 [facility], [address] [place] [address], [phone], [facility] 04/23/2018 16:13:42 Other completed TAD PUGH LPN 175 [facility], [address] [place] [address], [phone], [facility] 04/23/2018 16:14:11 Imaging Results Imaging Date Name Status LastModified by Organization Details LastModified Time 06/28/2024 US, pelvis, transabdominal + transvaginal completed [email or web address] Information not available 07/01/2024 18:32:20 Procedure Notes None recorded. Medical Equipment None Reported. Allergies Allergen ID Allergen Name Allergen Category Reaction Reaction Severity Criticality Documentation Date Start Date Code Code System Note Provider Name and Address Organization Details Recorded Time [id number] metronida zole medicatio n vomiting moderate Not available 05/21/2023 6922 RxNorm OMG1 NURSE 175 [facility], [address] [place] [address], [place], [address], [facility] 4 10:59:16 6681907 amoxicill in medicatio n rash moderate Not available 05/21/2023 723 RxNorm OMG1 NURSE 175 [facility], [address] [place] [address], [place], [place], [address] [place] [address] 4, [facility] 4 10:59:16 Medications Name Sig Start Date Stop Date Status Note LastModified by Organization Details LastModified Time status covid-19/fl u a-b antigen tst TEST DIRECTED TODAY active Not Available Not Available No t Available doxycycline hyclate 100 mg capsule TAKE ONE CAPSULE TWICE DAILY FOR FIRST DAY, THEN ONCE DAILY FOR 7 DAYS 04/24 completed Not Available Not Available Not Available cetirizine 10 mg tablet TAKE 1 TABLET BY MOUTH EVERY DAY 04/24 completed Not Available Not Available Not Available fluconazole 150 mg tablet TAKE 1 TABLET BY MOUTH ONCE. MAY TAKE 2ND PILL 2 DAYS LATER IF SYMPTOMS PERSIST 04/24 completed Not Available Not Available Not Available clarithromy valentina 500 mg tablet TAKE 1 TABLET BY MOUTH TWICE A DAY 04/24 completed Not Available Not Available Not Available metronidazo le 0.75 % (37.5 mg/5 gram) vaginal gel Insert 1 applicato rful every day by vaginal route at bedtime for 5 days. 06/17 completed Not Available Not Available Not Available metronidazo le 500 mg tablet TAKE 1 TABLET BY MOUTH TWICE A DAY DO NOT CONSUME ALCOHOL WHILE TAKING THIS PRODUCT 05/20 completed Not Available Not Available Not Available ciprofloxac in 250 mg tablet TAKE 1 TABLET BY MOUTH TWICE A DAY FOR 3 DAYS 04/24 completed Not Available Not Available Not Available acetaminoph en 500 mg tablet TAKE 2 TABLETS BY MOUTH EVERY 6 HOURS NEEDED FOR MILD-MODE RATE PAIN 04/24 completed Not Available Not Available Not Available pantoprazol e 40 mg tablet,michelle yed release TAKE 1 TABLET BY MOUTH HALF HOUR BEFORE BREAKFAST 04/24 completed Not Available Not Available Not Available docusate sodium 100 mg capsule 100 MG TWICE A DAY 04/24 completed Not Available Not Available Not Available cephalexin 500 mg tablet 05/10 completed Not Available Not Available Not Available clindamycin 2 % vaginal cream Insert 1 applicato rful every day by vaginal route at bedtime for 7 days. 06/17 completed Not Available Not Available Not Available ondansetron 4 mg disintegrat ing tablet PLEASE SEE ATTACHED FOR DETAILED DIRECTION S 04/24 completed Not Available Not Available Not Available fluticasone propionate 50 mcg/actuati on nasal spray,suspe nsion SPRAY 2 SPRAYS INTO EACH NOSTRIL EVERY DAY 04/24 completed Not Available Not Available Not Available fludrocorti sone 0.1 mg tablet TAKE 1 TABLET BY MOUTH TWICE A DAY 04/24 completed Not Available Not Available Not Available oxycodone 5 mg tablet TAKE 1 OR 2 TABLETS BY MOUTH EVERY 4 HOURS NEEDED FOR MODERATE TO SEVERE PAIN 04/24 completed Not Available Not Available Not Available medroxyprog esterone 150 mg/mL intramuscul ar syringe 1 ML INJECTED ONCE EVERY 3 MONTHS INTRAMUSC ULAR active Not Available Not Available No t Available escitalopra m 10 mg tablet active Not Available Not Available Not Available levocetiriz ine 5 mg tablet TAKE 1 TABLET BY MOUTH EVERY DAY IN THE EVENING 30 DAYS 04/24 completed Not Available Not Available Not Available Lo Loestrin Fe 1 mg-10 mcg (24)/10 mcg (2) tablet Take 1 tablet every day by oral route as directed. 05/20 completed Not Available Not Available Not Available Vitals Date Recorded Body height Body mass index (BMI) [Percentile] Per age and sex Body mass index (BMI) Body weight Systolic blood pressure Diastolic blood pressure Provider Name and Address Organization Details Last Updated DateTime 9 173.99 cm 47 % 20.2 kg/m2 13428.3 3 g 114 mm[Hg] 80 mm[Hg] Hetal Edwards [facility] 9 15:59:47 Date Recorded Body height Body mass index (BMI) Body mass index (BMI) [Percentile] Per age and sex Body weight Systolic blood pressure Diastolic blood pressure Provider Name and Address Organization Details Last Updated DateTime 9 173.99 cm 19.4 kg/m2 31 % 53469.8 5 g 128 mm[Hg] 84 mm[Hg] Hetal Edwards [facility] 9 13:02:07 Date Recorded Body height Body mass index (BMI) [Percentile] Per age and sex Body mass index (BMI) Body weight Heart rate Systolic blood pressure Diastolic blood pressure Provider Name and Address Organization Details Last Updated DateTime 4 173.99 cm 65 % 23.3 kg/m2 71780.5 4 g 91 /min 114 mm[Hg] 81 mm[Hg] OMG1 NURSE 175 [facility], [address] [place], [address], [facility] 4 10:58:36 Date Recorded Body height Body mass index (BMI) Body weight Systolic blood pressure Diastolic blood pressure Provider Name and Address Organization Details Last Updated DateTime 04/27/2024 173.99 cm 24.3 kg/m2 16966.96 g 114 mm[Hg] 82 mm[Hg] Yumiko Potash [facility] 4 11:59:22 Date Recorded Body height Body mass index (BMI) Body weight Systolic blood pressure Diastolic blood pressure Provider Name and Address Organization Details Last Updated DateTime 06/18/2024 173.99 cm 24.5 kg/m2 73806.71 g 121 mm[Hg] 81 mm[Hg] Yumiko Potash [facility] 5 16:06:41 Social History Question Answer Notes LastModified by Organizat ion Details LastModified Time Tobacco Smoking Status Never Smoker TAD PUGH LPN 175 [facility], [address] [place], [address], [facility] 04/23/2018 16:12:43 What Is Your Level Of Alcohol Consumption? None Information not available 04/23/2018 Education 10 Informati on not available 05/21/2023 What Is The Highest Grade Or Level Of School You Have Completed Or The Highest Degree You Have Received? [id number] Information not available 05/21/2023 Do You Have Any Children? No Information not available 04/23/2018 Does Your Partner Physically Hurt You Or Threaten To Hurt You? No Information not available 04/23/2018 Has Your Partner Forced You To Have Sex Or Perform Sex Acts When You Did Not Want To? No Information not available 04/23/2018 Does Your Partner Insult, Scream At Or Talk Down To You? No Information not available 04/23/2018 Does Your Partner Control You Or Any Part Of Your Life? No Information not available 04/23/2018 Are You Afraid Of Your Partner? No Information not available 04/23/2018 Tobacco Type Electronic Cigarettes/Vape Information not available 05/21/2023 Drug Use? No Information no t available 04/23/2018 Do You Feel Safe At Home? Yes Information not available 04/23/2018 What Was The Date Of Your Most Recent Tobacco Screening? 04/23/2018 Information not available 05/21/2023 How Many Children Do You Have? 0 Information not available 05/21/2023 General Stress Level Medium Information not available 05/21/2023 Do You Feel Stressed (tense, Restless, Nervous, Or Anxious, Or Unable To Sleep At Night)? [id number] Information not available 05/21/2023 Have You Recently Traveled Abroad? No Information not available 05/21/2023 Have You Recently (within The Last 12 Weeks, Or During A Current ) Traveled To Or Lived In A Zika-affected Area? No Information not available 05/21/2023 Sex: Unknown Functional Status Question Answer Note LastModified by Organization D etails LastModified Time What is your exercise level? Moderate Information not available 04/23/2018 Mental Status None recorded. Family History Relationship Description Onset Age of this Age Resolved Age Notes LastModified by Organization Details LastModified Time Maternal Grandmother Diabetes mellitus [email or web address] Not available 2017 16:05:22 Maternal Grandmother Hypertensive disorder Not available 2017 16:14:28 Maternal Grandfather Diabetes mellitus [email or web address] Not available 2017 16:06:19 Maternal Grandfather Disorder of thyroid gland [email or web address] Not available 2017 16:06:19 Maternal Grandfather Heart disease [email or web address] Not available 2017 16:06:19 Maternal Grandfather Malignant melanoma [email or web address] Not available 2017 16:06:19 Paternal Grandmother Diabetes mellitus [email or web address] Not available 2017 16:06:42 Paternal Grandmother Heart disease [email or web address] Not available 2017 16:06:42 Paternal Grandfather Malignant neoplasm of lung [email or web address] Not available 2017 16:07:23 Paternal Grandfather Malignant neoplasm of prostate [email or web address] Not available 2017 16:07:23 Paternal Uncle Malignant neoplasm of prostate [email or web address] Not available 2017 16:07:41 Medical History Condition Response HIV N Anxiety Disorder Y Diabetes N Heart Problems Y Blood Transfusions N HSV N *No Diseases or Conditions N Blood clots N Cancer N Kidney or Bladder Problems N Thyroid Problems Y Abuse/Domestic Violence N Stroke N Lung Disease N Depression N Asthma N Defects or Inherited Disease N Anesthesia Complications N Hepatitis N Neurological Disorder N Hypertension N Osteoporosis N Psychiatric Illness N Gynecological History Statement/Question Response BrCa Positive N Infertility N Date of LMP 08/29/2020 IPV Screen Done 06/18/2024 HPV Vaccine Y Endometriosis N Current Control Method Depo-Rn Spine a Fibroids N Cervical Cancer N Uterine Cancer N BrCa gene tested? N Current Control Method Depo Rn Spine a Ovarian Cancer N Breast Cancer N Sexually Active? Y Sexual Problems? N Date of Last Pap Smear 06/18/2024 Pap Required? Y Obstetrics History GPAL:G 0 P 0 0 0 0 Immunizations Vaccine Type Date Status Note Provider Nam e and Address Organization Details Recorded Time COVID-19, mRNA, LNP-S, PF, 30 mcg/0.3 mL dose 1 completed OMG1 NURSE 175 [facility], [address] [place] [address], [place], [place], [address] [place] [address], [facility] 05/21/2023 11:00:55 COVID-19, mRNA, LNP-S, PF, 30 mcg/0.3 mL dose 1 completed OMG1 NURSE [address], [place], [place], [address] [place] [address], [facility] 05/21/2023 11:00:55 Influenza, split virus, trivalent, preservative 3 completed OMG1 NURSE [address], [place], [place], [address] [place] [address], [facility] 05/21/2023 11:00:55 Influenza, split virus, trivalent, PF 1 completed OMG1 NURSE [address], [place], [place], [address] [place] [address], [facility] 05/21/2023 11:00:55 Tdap 6 completed Yumiko Potash null, [facility] 06/18/2024 11:35:31 Influenza, split virus, trivalent, preservative 4 completed Yumiko Potash null, [facility] 06/18/2024 11:35:31 Past Encounters Encounter ID Performer Location Encounter Start Date Encounter Closed Date Diagnosis/Indication Diagnosis SNOMED-CT Code Diagnosis ICD10 Code Diagnosis Note [id number] [facility] [address] [place] [address] 04/23/2018 15:50:54 04/24/2018 06:37:30 Dysmenorrhea [id number] N94.6 [id number] [facility] [address] [place] [address] 08/07/2018 15:52:25 08/10/2018 08:44:34 [id number] [facility] [address] [place] [address] 05/10/2019 12:55:05 05/13/2019 07:53:14 Gynecologic examination 30455445 Z01.419 Dysmenorrhea 490854371 N 94.6 [id number] JENNA WEST CNM MAO1 [address] [place] [address] 05/21/2023 10:48:48 05/21/2023 14:02:26 Gynecologic examination 56125014 Z01.419 [id number] MARTINE GRIMALDO PA-C OMG2 [address] [place] [address] 04/27/2024 11:41:09 04/29/2024 08:00:36 Pain in pelvis 36657845 R10.2 [id number] JENNA WEST CNM OMG3 [address] [address] 06/18/2024 15:55:13 06/24/2024 10:17:23 Gynecologic examination 13308029 Z01.419 Left lower quadrant pain 148696678 R10.32 Health Concerns Section Related Observation LastModified by Organization Detai ls LastModified Time None Recorded Concern Status LastModified by Organization Details LastModified Time None Recorded Advance Directives Directive None Recorded Payers Encounter Date Sequence Insurance Name Policy Number Policy Gore Covered Member ID Gore Member ID Guarantor Name 08/07/2018 1 [facility] [id number] Max Augustin [id number] Max Rowe Augustin 05/10/2019 1 [facility] [id number] Max Ruffin [id number] Max Rowe Ruffin 05/21/2023 1 [place] [id number] Max E Ruffin [id number] Max Rowe Ruffin 04/27/2024 1 [place] [id number] Max E Ruffin [id number] Max Rowe Ruffin 06/18/2024 1 [place] [id number] Max E Ruffin [id number] Max Ruffin Notes Date Note Type Note Provider Name and Address Organization Details Recorded Time 08/07/2018 text/html 17-year-old G0 presents for pill check. Happy with her low Loestrin Fe, her periods are marble carver and shorter with less cramping. She has no untoward side effects of the pill and would like to continue this regimen JENNA WEST CNM 175 [facility], [address] [facility], [place], [address], [facility] 08/07/2018 16:17:10 05/10/2019 text/html 18-year-old G0 presents for an annual well woman exam. Very happy with her current OCP. Desires refill. Not yet sexually active. JENNA WEST CNM 175 [facility], [address], [place], [address], [facility] 05/10/2019 13:17:53 05/21/2023 text/html 22 year old Jolene presents for her annual well woman exam. Using Depo for control. Happy with this method. Reports frequent yeast infections ever since taking several rounds of ABX for illness. JENNA WEST CNM 175 [facility], [address] [place] [address], [place], [id number], [facility] 05/21/2023 11:26:28 04/27/2024 text/html Elvira is a 23y o G0 here for c/o LLQ pelvic pain over the last 2 weeks. Symptoms are intermittent andd vary in intensity between dull ache and sharp pain, mostly in the LLQ. Pain resolves with holding pressure and passes without the need for further intervention. She has also been dealing with some GI issues since her cholecystectomy 4 months ago. She reports stool changes and rectal bleeding and is waiting for GI follow up. She is unable to isolate if her pelvic pain corresponds with need for BMs or not. She is sexually active with a new male partner. Using Depo for contraception but also reports using condoms for STI prevention. She has a h/o recurrent vaginitis but has been without symptoms for >6 months since starting a vaginal probiotc. No reports of abnormal vaginal discharge, odor or dyspareunia. MARTINE GRIMALDO PA-C [address] [facility], [address], [place], [address], [facility] - [facility] 04/27/2024 12:46:53 06/18/2024 text/html 23 year old sexu ally active female presents for her annual well woman exam. Due for first pap. Struggling with recurrent BV. Started Lexapro for anxiety. Still having the RLQ pain that brought her here last month. JENNA WEST CNM [address] [facility], [address], [place], [address], [facility] - [facility] 06/18/2024 16:30:11 OBGyn Episode No OBEpisode recorded.
--- OUTSIDE RECORDS SUMMARY | 2024-09-12 18:27 | XMS_ITS | Encounter Summary ---
Author Organization [facility] Address [address] [place] [address] Care Team Providers Care [facility] Center Attendant Name Role Phone Rao Katy HOLMAN Primary Care Provider Aki Liang MD Unavailable [phone] Katarina Ma DO Unavailable [phone] Aki Reyes MD Unavailable [phone] [place] rubio DO Unavailable [phone] Pcp, No Primary Care Provider Unavailabl e Giuseppe Lee MD Primary Care Provider Giuseppe Lee MD Unavailable [phone] Giuseppe Lee MD Unavailable [phone] Giuseppe Lee MD Unavailable [phone] Giuseppe Lee MD Unavailable [phone] Encounter Details Date Type Department Care Team (Late st Contact Info) Description 04/06/2018 Scanned Document [facility] [address] [place] [address] Provider, Generic Social History Tobacco Use Types [...] on filedocumented in this encounter Care Teams Fitness Center Attendant Relationship Specialty Start Date End Date Katy Yeh APRN PCP - General Family Medicine 04/06/18 03/15/20 Aki Reyes MD [address] [place] [id number] PCP - [employer] Attributed 02/16/19 05/18/19 Katarina Ma DO [address] [place] [id number] PCP - [employer] Attributed 05/19/19 08/17/19 Aki Reyes MD [address] [place] [id number] PCP - [employer] Attributed 08/18/19 11/16/19 Katarina Ma DO [address] [place] [id number] PCP - [employer] Attributed 11/17/19 08/16/20 Pcp, No PCP - General General Medicine 05/29/20 07/31/20 [place] [address] [place] [id number] PCP - General Family Medicine 08/01/20 Giuseppe Lee MD [address] [place] [address] PCP - [employer] Attributed 08/17/20 04/17/21 Giuseppe Lee MD [address] [facility] [place] [address] PCP - [employer] Attributed 09/16/21 10/16/21 Giuseppe Lee MD [address] [facility] [place] [address] PCP - [employer] Attributed 11/16/21 03/18/22 Giuseppe Lee MD [address] [facility] [place] [address] PCP - [employer] Attributed 05/19/22 documented as of this encounter
--- OUTSIDE RECORDS SUMMARY | 2024-09-12 18:27 | XMS_ITS ---
Author Organization [facility] Address [address], [place] [id number] Care Team Providers Care Customer Resource Specialist Name Role Phone GIUSEPPE PATEL Primary Care Provider Allergies Allergen (clinical drug ingredient) Drug/Non Drug Allergy documented on EMR Reaction Allergy Type Onset Date Status amoxicillin Amoxicillin rash Drug Allergy Act stanislav Penicillin G Benzathine Unknown Drug Allergy Active Silicone Silicone rashes Allergy Active Reason For Referral Reason Bleeding Per rectum , with clots Diagnosis 1 Noninfective gastroe nteritis and colitis, unspecified (K52.9) Diagnosis 2 Hemorrhage of anus a nd rectum (K62.5) Referral Organization [facility] Referring Provider First Name GIUSEPPE Referring Provider Last Name MICHAEL Y Referring Provider Speciality [facility] gemice Referred Provider Ginny Celeste Referred Provider Specialty Gastroentero logy Referral Priority Routine REASON FOR VISIT CPE, is on DEPO, Pap: May with [facility] - 2015, wants to review labs, blood in the stool ,wants to talk , notices at least one in every 2 months Medications Medication SIG (Take, Route, Frequency, Duration) Notes Start Date End Date Status medroxyPROGESTERone Acetate 150 MG/ML 1 ML INJECTED ONCE EVERY 3 MONTHS INTRAMUSCULAR 90 DAY(S) for 90 Active Pantoprazole Sodium 20 MG 1 tablet Orall y Once a day Active Lexapro 10 MG 1 tablet Orally Once a day Active Social History Tobacco Use: Social History Observation Description Date Details (start date - stop date) Never Smoker NA - NA Tobacco Use/Smoking Question Answer Notes Are you a nonsmoker Alcohol Screen (Audit-C) Question Answer Notes Did you have a drink containing alcohol in the p ast year? No Points 0 Interpretation Negative Section Notes: occasional etoh Problems Problem Type SNOMED Code ICD Code Onset Dates Problem Status W/U Status Risk Notes Problem Adjustment disorder with depressed mood (20138817) Adjustment disorder with depressed mood (F43.21) Active confirmed Vital Signs Temperature 98 degrees Fahrenheit 08/03/2024 Heart Rate 95 /min 08/03/2024 Blood pressure systolic 108 mm Hg 08/04/19 25 Blood pressure diastolic 74 mm Hg 025 Weight 160.6 lbs 08/03/2024 BMI 24.06 kg/m2 08/03/2024 Height 68.5 in 08/03/2024 Oximetry 98 % 08/03/2024 Encounters Encounter Location Date Provider Diagnosis [facility] [address] [place], [place] [id number] 08/03/2024 GIUSEPPE PATEL Encounter for general adult medical examination without abnormal findings Z00.00 ; Encounter for screening for depression Z13.31 ; Body mass index [BMI] 24.0-24.9, adult Z68.24 ; Hemorrhage of anus and rectum K62.5 and Noninfective gastroenteritis and colitis, unspecified K52.9 Assessments Encounter Date Diagnosis (ICD Code) Assessment Notes Treatment Notes Treatment Clinical Notes Section Notes 08/03/2024 Encounter for general adult medical examination [...] breast once a month after . 08/03/2024 Body mass index [BMI] 24.0-24.9, adult (ICD-10 - Z68.24) Advised pt to exercise daily and eat a healthy diet. Advised pt to self exam breast once a month after . 08/03/2024 Hemorrhage of anus and rectum (ICD-10 - K62.5) Advised pt to exercise daily and eat a healthy diet. Advised pt to self exam breast once a month after . 08/03/2024 Noninfective gastroenteritis and colitis, unspecified (ICD-10 - K52.9) Colitis: Care Instructions material was published Advised to eat soft , bland fiber rich diet. Advised pt to exercise daily and eat a healthy diet. Advised pt to self exam breast once a month after MC. Plan Of Treatment Treatment Notes Assessment Notes Encounter for general adult medical examination without abnormal findings Well Visit, Ages 18 to 65: Care Instructions material was published Encounter for screening for depression L earning About Depression Screening material was published Noninfective gastroenteritis and colitis, unspecified Colitis: Care Instructions material was published Advised to eat soft , bland fiber rich diet. Referrals Referral Date Details 08/04/2024 08/04/2024, Bleeding Per rectum , with clots, Ginny Celeste Progress Notes * LIZARRAGAElvira LITTLEDOB: [birth year] (23 yo F)Acc No.[id number]:08/03/2024 Progress Notes Patient:?Elvira LIZARRAGA Provider:?Giuseppe Patel :2000???Age:23 Y???Sex:Female D ate:08/03/2024 Address: [address], [facility], [id number] Subjective: * Chief Complaints: * ???1. CPE. 2. is on DEPO. 3. Pap: 2024, Hilario with OBG[facility]. 4. Tdap - 2015. 5. Wants to review labs. 6. Blood in the stool , wants to talk , notices at least one in every 2 months. * HPI: ???Constitutional:?Denies : Anorexia.?Denies : Fatigue.?Denies : Fever.?Denies : Joint pains.?Denies : Myalgia.?Denies : Neck pain.?Denies : Night sweats.?Denies : Weight gain.?Denies : Weight loss.?Denies : edema.?Denies : Swollen legs.?Denies : sleep disturbances.?Denies : headache.?Denies : chills.? Pt is here for physical. Last pap: 05/2024 LMP: On depo MC: On Depo Diet & Exercise: Good and healthy Eye exam: No issues Complaints: reviewed the blood work with the patient. The patient c/o Diarrhea and blood in stool , says its a lot of blood and blood clots. Also has sharp abdominal pain in left lower quadrant. Saw OBGYn and did a ultrasound which was normal. reviewed the Blood work results , has high hemoglobin , denies any family h/o Crohn's disease ior GI issues.Denies Constipation or eating spicy foods or any allergies. The patient says that the blood in the stool happens once in 2 months not daily. ???Depression Screening:?PHQ-2 (2015 Edition)?Little interest or pleasure in doing things??Not at all ?Feeling down, depressed, or hopeless??Not at all * ROS:?General/Constitutional:?Denies?Change in appetite.?Denies?Chills.?Denies?Fatigue.?Denies?Fever.?Denies?Headache.?Denies?L ightheadedness.?Denies?Sleep disturbance.?Denies?Weight gain.?Denies?Weight loss.?Allergy/Immunology:?AIDS?denies.?Denies?Blistering of skin.?Denies?Congestion.?Denies?Cough.?Denies?HIV Positive,?denies.?Denies?Hives.?Denies?Itching.?Denies?Rash.?Denies?Seasonal allergies,?denies.?Denies?Sneezing.?Denies?Unusual reaction to medication(s), food, animals or insects.?Denies?Watery eyes.?Denies?Wheezing.?You or family member have problems with anesthesia?denies.?Ophthalmologic:?Denies?Blurred vision,?denies.?Denies?Contact lens,?denies.?Denies?Corrective lens,?denies.?Denies?Diminished visual acuity.?Denies?Discharge.?Denies?Dry eye,?denies.?Denies?Eye Pain.?Denies?Eye problems,?denies.?Denies?Flashes of light in the visual field.?Denies?Floaters in the visual field.?Denies?Itching and redness.?Denies?Red eye.?Denies?Vision screen.?ENT:?Denies?Blocked ear.?Denies?Capped teeth, veneers or dentures.?Denies?Decreased hearing.?Denies?Decreased sense of smell.?Denies?Deviated septum,?denies.?Denies?Difficulty swallowing.?Denies?Dry mouth.?Denies?Ear pain.?Denies?Ear problems,?denies.?Denies?Hearing screen.?Denies?History of broken nose,?denies.?Denies?Masses.?Denies?Mouth breathing at night.?Denies?Nose/Throat problems,?denies.?Denies Nosebleed.?Denies?Oral or facial skeletal surgery.?Denies?Pain.?Denies?Ringing in the ears.?Denies?Sinus pain.?Denies?Snoring,?denies.?Denies?Sore throat.?Denies?Swollen glands.?Endocrine:?Denies?Acne.?Denies?Cold intolerance.?Denies?Diabetes.?Denies?Difficulty sleeping.?Denies?Dizziness.?Denies?Excessive sweating.?Denies?Excessive thirst.?Denies?Frequent urination.?Denies?Hair loss.?Denies?Heat intolerance.?Denies?Hot flashes.?Denies?Irregular menses.?Denies?Thyroid problems.?Denies?Weakness.?Denies?Weight loss.?Respiratory:?Denies?Asthma,?denies.?Denies?Breathing pattern.?Denies?Breathing problems,?denies.?Denies?Chest pain.?Denies?Cough.?Denies?Hemoptysis.?Denies?Pain with inspiration.?Denies?Pneumonia,?denies.?Denies?Shortness of breath,?denies.?Denies?Shortness of breath at rest.?Denies?Shortness of breath with exertion.?Denies?Sputum production.?Denies?Tuberculosis,?denies.?Denies?Wheezing.?Breast:?Denies?Bloody nipple discharge.?Denies?Bra strap grooving,?admits.?Denies?Breast biopsies,?denies.?Denies?Breast lump.?Denies?Breast pain.?Denies?Breast swelling.?Denies?Burning nerve pain.?Denies?Chest muscle pain.?Denies?Fever.?Denies?Gland swelling.?Denies?Nipple discharge.?Denies?Rashes.?Denies?Red skin.?Denies?Weight loss.?Have you had a mammogram??No.?Denies?History of breast cancer,?denies.?Denies?Known breast asymmetry,?admits.?Cardiovascular:?Denies?Chest pain.?Denies?Difficulty laying flat.?Denies?Dizziness.?Denies?Dyspnea on exertion.?Denies?Heart problems.?Denies?Palpitations.?Denies?Shortness of breath.?Gastrointestinal:?Denies?Abdominal pain.?Admits?Blood in stool.?Denies?Change in bowel habits.?Denies?Colitis,?denies.?Denies?Constipation.?Denies?Decreased appetite.?Denies?Diarrhea.?Denies?Difficulty swallowing.?Denies?Exposure to hepatitis.?Denies?Heartburn.?Denies?Hematemesis.?Denies?Hepatitis,?denies.?Denie s?Nausea.?Denies?Rectal bleeding.?Denies?Stomach problems,?denies.?Denies?Vomiting.?Denies?Weight loss.?Hematology:?Denies?Anemia,?denies.?Denies?Bleeding problems,?denies.?Denies?Breast lump.?Denies?Dizziness.?Denies?Easy bruising,?denies.?Denies?Fever.?Denies?Groin mass.?Denies?Prolonged bleeding.?Denies?Recent transfusion,?denies.?Denies?Swollen glands.?Denies?Weakness.?Denies?Weight loss.?Denies?Family member with bleeding problems,?denies.?Women Only:?Denies?Breast lump.?Denies?Breast pain.?Denies?Discharge from the breast.?Denies?Heavy bleeding during menses.?Denies?Hot flashes.?Denies?Irregular menses.?Denies?Missed period(s).?Denies?Painful intercourse.?Denies?Painful menses.?Denies?Vaginal bleeding between periods.?Denies?Vaginal discharge/itching.?Genitourinary:?Denies?Abdominal pain/swelling.?Denies?Blood in urine.?Denies?Difficulty urinating.?Denies?Frequent urination.?Denies?Heavy uterine bleeding,?denies.?Denies?Kidney problems,?denies.?Denies?Pain in lower back.?Denies?Painful urination.?Musculoskeletal:?Denies?Arthritis,?denies.?Denies?Back problems,?denies.?Denies?Carpal tunnel.?Denies?History of Gout,?denies.?Denies?Joint stiffness.?Denies?Leg cramps.?Denies?Muscle aches.?Denies?Pain in shoulder(s).?Denies?Painful joints.?Denies?Sciatica.?Denies?Swollen joints.?Denies?Trauma to arm(s).?Denies?Trauma to hip(s).?Denies?Trauma to knee(s).?Denies?Trauma to ankle(s).?Denies?Weakness.?Peripheral Vascular:?Denies?Absent pulses in hands.?Denies?Absent pulses in feet.?Denies?Blanching of skin.?Blood clots in legs?Denies.?Denies?Cold extremities.?Denies?Decreased sensation in extremities.?Denies?Pain/cramping in legs after exertion.?Denies?Painful extremities.?Denies?Ulceration of feet.?Podiatric:?Denies?Achilles pain.?Denies?Achilles swelling.?Denies?Ankle pain.?Denies?Ankle swelling.?Denies?Ball of foot pain.?Denies?Big toe pain.?Denies?Big toe swelling.?Denies?Burning.?Denies?Difficulty walking.?Denies?Fever.?Denies?Foot numbness.?Denies?Foot pain.?Denies?Joint dislocation.?Denies?Redness over the achilles.?Denies?Sole pain.?Denies?Wound oozing.?Skin:?Denies?Acne.?Applies sunscreen daily?admits.?Denies?Blistering of skin.?Denies?Discoloration.?Denies?Dry skin.?Denies?Eczema.?Denies?Excessive sun exposure.?Denies?Hair changes.?Denies?Hives.?Denies?Itching.?Denies?Keloid formation.?Denies?Masses.?Denies?Mole(s).?Denies?Nail changes.?Denies?Nodule(s).?Denies?Photosensitivity.?Denies?Rash.?Denies?Rash on feet.?Denies?Scaly lesions of skin/scalp.?Denies?Skin cancer.?Denies?Skin lesion(s).?Denies?Skin oozing.?Denies?Sun sensitivity.?Treated with radiation?denies.?Neurologic:?Denies?Balance difficulty.?Denies?Coordination.?Denies?Difficulty speaking.?Denies?Dizziness.?Denies?Fainting.?Denies?Gait abnormality.?Denies?Headache.?Denies?Irritability.?Denies Loss of strength.?Denies?Loss of use of extremity.?Denies?Low back pain.?Denies?Memory loss.?Denies?Pain.?Denies?Paralysis.?Denies?Seizures.?Stroke?Denies,?denies.?Den ies?Tics.?Denies?Tingling/Numbness.&# 160;Denies?Transient loss of vision.?Denies?Tremor.?Psychiatric:?Denies?Anxiety.?Denies?Auditory/visual hallucinations.?Denies?Delusions.?Denies?Depressed mood.?Denies?Difficulty sleeping.?Denies?Eating disorder.?Denies?Loss of appetite.?Denies?Mental or Physical abuse.?Denies?Nervous breakdown,?denies.?Denies?Psychiatric condition,?denies.?Denies?Stressors.?Denies?Substance abuse.?Denies?Suicidal thoughts.?Health Education:?Denies?Blood pressure screening.?Denies?Diabetes screening.?Denies?Family planning/safe sex teaching.?Denies?Healthy weight education.?Denies?Hepatitis vaccination.?Denies?Influenza vaccination.?Denies Lipid screening.?Denies?Pneumovax vaccination.?Denies?Smoking cessation.?Cancer Self-Management:?Admits?Breast self-exam.?Admits?PAP testing.?Admits?Skin exam.?Denies?Smoking cessation.?Admits?Use of sunscreen.? * Medical History:?Nonrheumati c mitral (valve) prolapse, Autoimmune thyroiditis, Adjustment disorder with depressed mood. * Surgical History:?face , heather brandon for broken left arm , gall bladder 2023. * Family History:?Father: dat holden.?Mother: alive.?1 brother(s) - healthy. .? grandparents all diabetes paternal grandfather - lung cancer maternal grandfather - open heart surgery cousin - lupus and kidney problems maternal grandmother and aunt - rheumatoid arthritis Dad-diagnosed with Pericarditis maternal aunt - breast cancer. * Social History:?Tobacco Use:?Tobacco Use/Smoking?Are you a?nonsmoker ???Drugs/Alcohol:?Drugs?Have you used drugs other than those for medical reasons in the past 12 months??No ?Alcohol Screen (Audit-C)?Did you have a drink containing alcohol in the past year??No ?Points?0 ?Interpretation?Negative ?Caffeine?Intake:?not daily ?Do you smoke marijuana?: Denies. ?Do you drink alcohol?: No. ???Miscellaneous:?Caffeine: no. ?Children: no. ?Community involvements: no. ?Domestic violence: no. ?Exercise: yes. ?Home smoke detector use: yes. ?Legal problems: no. ?Living with: family. ?Marital status: . ?Natural support system: no. 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 ?Others at home: yes. ?Sexual abuse: no. ?Sexually active: yes, monogamous relationship. ?Travel outside of the [place]: no. ?Verbal abuse: no. ???occasional etoh. * Medications:?Taking Lexapro 10 MG Tablet 1 tablet Orally Once a day , Taking Pantoprazole Sodium 20 MG Tablet Delayed Release 1 tablet Orally Once a day , Taking medroxyPROGESTERone Acetate 150 MG/ML Suspension Prefilled Syringe 1 ML INJECTED ONCE EVERY 3 MONTHS INTRAMUSCULAR 90 DAY(S) , Medication List reviewed and reconciled with the patient * Allergies:?Penicillin G Amor athine, Amoxicillin: rash - Allergy, Silicone: rashes. Objective: * Vitals:?Temp:98F, wst: 35, H R:95/min, BP:108/74mm Hg, Wt:160.6lbs, BMI:24.06Index, Ht: 68.5 in, Oxygen sat %:98%, Ht-cm: 173.99 cm, Wt-k.85 kg. * ???Past Orders: ???Lab:LIPID PANEL WITH REFL EX TO DIRECT LDL (Order Date - 07/28/2024) (Collection Date & Time - 07/28/2024 01:25 PM) ? Value Reference Range ?TRIGLYCERIDES 98 <150 - mg/dL ?CHOLESTEROL, TOTAL 171 < 200 - mg/dL ?HDL CHOLESTEROL 37 L > OR = 50 - mg/dL ?LDL-CHOLESTEROL 114 H - mg /dL (calc) ?CHOL/HDLC RATIO 4.6 <5.0 - (calc) ?NON HDL CHOLESTEROL 134 H <130 - mg/dL (calc) ???Lab:COMPREHENSIVE METABOL IC PANEL (Order Date - 07/28/2024) (Collection Date & Time - 07/28/2024 01:25 PM) ? Value Reference Range ?GLUCOSE 88 65-99 - mg/d L ?UREA NITROGEN (BUN) 10 7-25 - mg/dL ?CREATININE 0.64 0.50-0.96 - mg/dL ?BUN/CREATININE RATIO SEE NOTE: 6-22 - (calc) ?SODIUM 136 135-146 - mmo l/L ?POTASSIUM 3.8 3.5-5.3 - mmol/L ?CHLORIDE 104 98-110 - mm ol/L ?CARBON DIOXIDE 23 20-32 - mmol/L ?CALCIUM 9.3 8.6-10.2 - m g/dL ?PROTEIN, TOTAL 8.0 6.1-8 .1 - g/dL ?ALBUMIN 4.7 3.6-5.1 - g/ dL ?GLOBULIN 3.3 1.9-3.7 - g /dL (calc) ?ALBUMIN/GLOBULIN RATIO 1.4 1.0-2.5 - (calc) ?BILIRUBIN, TOTAL 1.8 H 0.2 -1.2 - mg/dL ?ALKALINE PHOSPHATASE 89 31-125 - U/L ?AST 19 10-30 - U/L ?ALT 28 6-29 - U/L ?EGFR 129 > OR = 60 - mL/ min/1.73m2 ???Lab:CBC (INCLUDES DIFF/PL T) (Order Date - 07/28/2024) (Collection Date & Time - 07/28/2024 01:25 PM) ? Value Reference Range ?WHITE BLOOD CELL COUNT 10.1 3.8-10.8 - Thousand/uL ?RED BLOOD CELL COUNT 5.21 H 3.80-5.10 - Million/uL ?HEMOGLOBIN 16.3 H 11.7-15.5 - g/dL ?HEMATOCRIT 47.2 H 35.0-45.0 - % ?MCV 90.6 80.0-100.0 - fL ?MCH 31.3 27.0-33.0 - pg ?MCHC 34.5 32.0-36.0 - g/d L ?RDW 12.6 11.0-15.0 - % ?PLATELET COUNT 221 140-4 00 - Thousand/uL ?NEUTROPHILS 53.9 - % ?ABSOLUTE NEUTROPHILS 5444 8819-9678 - cells/uL ?LYMPHOCYTES 39.0 - % ?ABSOLUTE LYMPHOCYTES 3939 H 850-3900 - cells/uL ?MONOCYTES 5.7 - % ?ABSOLUTE MONOCYTES 576 2 00-950 - cells/uL ?EOSINOPHILS 0.9 - % ?ABSOLUTE EOSINOPHILS 91 15-500 - cells/uL ?BASOPHILS 0.5 - % ?ABSOLUTE BASOPHILS 51 0 -200 - cells/uL ?MPV 10.5 7.5-12.5 - fL ???Lab:URINALYSIS, COMPLETE W/REFLEX TO CULTURE (Order Date - 07/28/2024) (Collection Date & Time - 07/28/2024 01:25 PM) ? Value Reference Range ?COLOR YELLOW YELLOW - ?APPEARANCE CLEAR CLEAR - ?BILIRUBIN NEGATIVE NEGATIVE - ?KETONES NEGATIVE NEGATIVE - ?SPECIFIC GRAVITY 1.007 1.0 01-1.035 - ?OCCULT BLOOD NEGATIVE NEGATIV E - ?PH 6.5 5.0-8.0 - ?PROTEIN NEGATIVE NEGATIVE - ?NITRITE NEGATIVE NEGATIVE - ?LEUKOCYTE ESTERASE NEGATIVE N EGATIVE - ?WBC NONE SEEN < OR = 5 - /HPF ?RBC NONE SEEN < OR = 2 - /HPF ?SQUAMOUS EPITHELIAL CELLS 0-5 < OR = 5 - /HPF ?BACTERIA NONE SEEN NONE SEEN - /HPF ?HYALINE CAST NONE SEEN NONE SE EN - /LPF ?GLUCOSE NEGATIVE NEGATIVE - ???Lab:HEMOGLOBIN A1c (Order Date - 07/28/2024) (Collection Date & Time - 07/28/2024 01:25 PM) ? Value Reference Range ?HEMOGLOBIN A1c 4.5 <5.7 - % of total Hgb ???Lab:TSH (Order Date - 04/2025) (Collection Date & Time - 07/28/2024 01:25 PM) ? Value Reference Range ?TSH 2.48 - mIU/L ???Lab:REFLEXIVE URINE CULTU RE (Order Date - 07/28/2024) (Collection Date & Time - 07/28/2024 01:25 PM) ???Lab:QUANTIFERON(R)-TB GOL D PLUS, 1 TUBE (Order Date - 07/28/2024) (Collection Date & Time - 07/28/2024 01:30 PM) ? Value Reference Range ?QUANTIFERON(R)-TB GO LD PLUS, 1 TUBE NEGATIVE NEGATIVE - ?NIL 0.03 - IU/mL ?MITOGEN-NIL >10.00 - IU/mL ?TB1-NIL 0.00 - IU/mL ?TB2-NIL <0.00 - IU/mL * Examination: ???General Examination: ?GENERAL APPEARANCE:?normal, alert, well hydrated, in no distress, in no acute distress, pleasant, in no acute distress, well developed, well nourished.?HEAD:?normocephalic, atraumatic.?EYES:?extraocular movement full and smooth , pupils equal, round, reactive to light and accommodation.?EARS:?auditory canal clear,?tympanic membrane intact, clear.?NOSE:?nares patent.?ORAL CAVITY:?mucosa moist.?THROAT:?clear, no erythema.?NECK/THYROID:?neck supple, full range of motion, no cervical lymphadenopathy.?LYMPH NODES:?no cervical adenopathy.?SKIN:?no suspicious lesions.?HEART:?no murmurs, regular rate and rhythm, S1, S2 normal.?LUNGS:?clear to auscultation bilaterally.?BREASTS:?no masses palpable bilaterally.?ABDOMEN:?normal, bowel sounds present, no hepatosplenomegaly.?RECTAL:?not examined.?BACK:?full range of motion , normal.?FEMALE GENITOURINARY:?, not examined.?MUSCULOSKELETAL:?normal , full range of motion.?EXTREMITIES:?no edema , normal.?PERIPHERAL PULSES:?2+ dorsalis pedis.?NEUROLOGIC:?cognitive exam grossly normal, alert and oriented , nonfocal.?PSYCH:?alert, oriented.? Assessment: * Assessment: 1.?Encounter for general tuan lt medical examination without abnormal findings - Z00.00 (Primary)???2.?Encounter for screening for depression - Z13.31???3.?Body mass index [BMI] 24.0-24.9, adult - Z68.24???4.?Hemorrhage of anus and rectum - K62.5???5.?Noninfective gastroenteritis and colitis, unspecified - K52.9??? Advised pt to exercise daily and eat a healthy diet. Advised pt to self exam breast once a month after MC. Plan: * Treatment: 2.?Encounter for screening f or depression? Notes: Learning About Depression Screening material was published?? 3.?Hemorrhage of anus and re ctum? Referral To:Ginny Celeste??Gastroenterology ?Reason:Bleeding Per rectum , with clots 4.?Noninfective gastroenteri tis and colitis, unspecified? Notes: Colitis: Care Instructions material was published Advised to eat soft , bland fiber rich diet.? Referral To:Ginny Celeste??Gastroenterology ?Reason:Bleeding Per rectum , with clots * Procedure Codes:?03105 BRIEF EMOTIONAL/BEHAV ASSMT * Preventive Medicine:? ??YOUR PREVENTIVE WELLNESS PLAN:?BMI, Height, and Weight:?My BMI, height, and weight were taken on:?08/03/2024 ?Blood Pressure:?My blood pressure was last taken on:?08/03/2024 ?Cervical Cancer Screening (Pap Smear):?Date of last Pap smear?2024 ?Cholesterol Testing:?My Cholesterol was last tested on:?07/28/2024 ?Diabetes Screening:?Screening for diabetes was last done on:?07/28/2024 ?Depression Screening:?Screening for depression was last done on:?08/03/2024 ?Alcohol Misuse Screening:?Screening for alcohol misuse was last done on:?08/03/2024 ??Counseling:?ALCOHOL USE/ABUSE SCREENING:?.?Annual pap smear:?.?Bike helmet:?.?Breast awareness?.?Breast self exam after periods:?.?Calcium supplementation:?.?Cancer screen:?.?Diet/Vitamins discussed including high doses of Vitamins A, C, E and Zinc:?.?Domestic violence:?.?Donor card:?.?Drugs?.?Exercise:?.?Guns in home:?.?Hand outs:?.?Hazardous materials exposure:?.?Health:?.?Injury prevention:?.?Living will/Organ donor:?.?Safety:?.?Seatbelts:?.?Sexual practices:?.?SMOKING:?.?Social:?.?Sunscreen:?.? Care Plan: * Problems:? * Images: Billing Information: * Visit Code:? 95149 Preventive Care Est Pt. Age 18-39. * Procedure Codes:? 89577 BRIEF EMOTIONAL/BEHAV ASSMT. * Sign off status: Completed true * Provider:?Giuseppe Patel Date:? Generated for Maryan mccormick/Judi/eTransmitting on:?09/12/2024 06:27 PM EDT History and Physical Notes * HPI (History of Present Illness) Category Sub-Category Detail Notes Category Not es Constitutional Anorexia Pt is here for physical. Last pap: 05/2024 LMP: On depo MC: On Depo Diet & Exercise: Good and healthy Eye exam: No issues Complaints: reviewed the blood work with the patient. The patient c/o Diarrhea and blood in stool , says its a lot of blood and blood clots. Also has sharp abdominal pain in left lower quadrant. Saw OBGYn and did a ultrasound which was normal. reviewed the Blood work results , has high hemoglobin , denies any family h/o Crohn's disease ior GI issues.Denies Constipation or eating spicy foods or any allergies. The patient says that the blood in the stool happens once in 2 months not daily. Fatigue Fever Joint pains Myalgia Night sweats Weight gain Weight loss Neck pain edema Swollen legs sleep disturbances headache chills Depression Screening PHQ-2 (2015 Edition) Little interest or pleasure in doing things?: Not at all Feeling down, depressed, or hopeless?: N ot at all Examination Category Sub-Category Detail Notes Category Not es General Examination GENERAL APPEARANCE: normal, alert, well hydrated, in no distress, in no acute distress, pleasant, in no acute distress, well developed, well nourished HEAD: normocephalic, atrau matic EYES: extraocular movement full and smooth , pupils equal, round, reactive to light and accommodation EARS: auditory canal clear , tympanic membrane intact, clear NOSE: nares patent THROAT: clear, no erythema NECK/THYROID: neck supple, full ra nge of motion, no cervical lymphadenopathy HEART: no murmurs, regular rate and rhythm, S1, S2 normal LUNGS: clear to auscultatio n bilaterally ABDOMEN: normal, bowel sounds present, no hepatosplenomegaly NEUROLOGIC: cognitive exam gross ly normal, alert and oriented , nonfocal SKIN: no suspicious lesion s EXTREMITIES: no edema , normal PERIPHERAL PULSES: 2+ dorsalis pedis BACK: full range of motion , normal BREASTS: no masses palpable b ilaterally MUSCULOSKELETAL: normal , full range of motion LYMPH NODES: no cervical adenopat hy RECTAL: not examined PSYCH: alert, oriented FEMALE GENITOURINARY: , not examined ORAL CAVITY: mucosa moist Consultation Request Notes Referral Date Referring Provider Referred Provider Not 08/04/2024 GIUSEPPE PATEL Alexia Bleeding Per rectum , with clots
--- OUTSIDE RECORDS SUMMARY | 2024-09-12 18:28 | XMS_ITS | Clinical Summary ---
Author Organization [facility] 's Address [address] [place] [address] Care Team Providers Care Living Manager Name Role Phone Giuseppe Lee MD Primary Care Provider Source Comments Please note that some or all of the patient's information could have additional privacy protections. State laws allow health care providers to render certain types of treatment to minors without parental consent. Please do not assume that this information can be shared solely by obtaining just the consent of the patient's parent/guardian. Please determine if all or part of the patient's care was rendered without parent/guardian involvement. And, if so, obtain the minor's consent prior to disclosure.[facility] Allergies Active Allergy Reactions Criticality Noted Date Comments Amoxicillin 01/29/2020 Medications medroxyPROGESTE Federico (DEPO-PROVERA) 150 mg/mL injection Inject into the muscle every 3 (three) months Active fludrocortisone (FLORINEF) 0.1 mg tablet Take 0.1 mg by mouth 2 (two) times daily 12/01/2021 Active omeprazole (PRILOSEC) 40 MG capsule TAKE 1 CAPSULE BY MOUTH EVERY DAY 30 MINUTES BEFORE MORNING MEAL FOR 30 DAYS 07/26/2021 Active ondansetron (ZOFRAN) 4 MG tablet TAKE 1 TABLET BY MOUTH TWICE A DAY NEEDED 09/13/2021 Active Active Problems Problem Noted Date Diagnosed Date 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 Thyroid nodule 01/18/2022 Closed fracture of neck of radius 01/05/2014 Immunizations Immunization Administration Dates Next Due Pfizer Sars-cov-2 (Purple Cap) Vaccination 09/15,08/25/2020 Family History Medical History Relation Name Comments Lupus Cousin No Known Problems Father Rheum arthritis Maternal Aunt Thyroid disease Maternal Aunt Diabetes type II Maternal Grandfather Diabetes type II Maternal Grandmother Rheum arthritis Maternal Grandmother Thyroid disease Maternal Grandmother Thyroid disease Mother Rheum arthritis Other Diabetes type II Paternal Grandfather Diabetes type II Paternal Grandmother Raynaud syndrome Neg Hx Relation Name Status Comments Cousin Father Maternal Aunt Maternal Grandfather Maternal Grandmother Mother Other Paternal Grandfather Paternal Grandmother Social History Tobacco Use Types Packs/Day Years Used Date Smoking Tobacco: Never Alcohol Use Standard Drinks/Week Comments Never 0 (1 standard drink = 0.6 oz pur e alcohol) Other Needs Answer Date Recorded Anything else about your child you'd like help w ith? Not on file 01/31/2023 Share good news about positive changes: Not on f ile 01/31/2023 Comments No Sex and Gender Information Value Date Recorded Sex Assigned at Female 01/09/2022 10:16 AM EDT Legal Sex Female 2:25 AM EST Gender Identity Female 01/09/2022 10:16 AM EDT Sexual Orientation Straight 01/09/2022 10 :16 AM EDT Last Filed Vital Signs Vital Sign Reading Time Taken Comments Blood Pressure 116/95 02/28/2022 3:53 PM EDT Pulse 82 02/28/2022 3:53 PM EDT Temperature 36.5 ??C (97.7 ??F) 02/28/2022 3:53 PM ED T Respiratory Rate 14 02/28/2022 3:53 PM EDT Oxygen Saturation 98% 02/28/2022 3:53 PM EDT Inhaled Oxygen Concentration - - Weight 62.5 kg (137 lb 12.6 oz) 02/28/2022 3:53 PM EDT Height 179 cm (5' 10.47 ) 02/28/2022 3:53 PM EDT Body Mass Index 19.51 02/28/2022 3:53 PM EDT Plan of Treatment Health Maintenance Due Date Last Done Comments DTaP/TDAP/TD VACCINES (1 - Tdap) 2009 ADOLESCENT HIV SCREENING 08/14/2015 COVID-19 Vaccine ( season) 2024 09/15/2020, 08/25/2020 INFLUENZA (#1) 2024 NIRSEVIMAB VACCINES UNDER 8 MONTHS Aged Out No longer eligible b ased on patient's age to complete this topic Insurance * Guarantor: Elvira Lizarraga Account Type Relation to Patient Date of Phone Billing Address Personal/Family Self 2000 [address] [place] [address] [facility] * Guarantor: CAIT LIZARRAGA Account Type Relation to Patient Date of Phone Billing Address Personal/Family Mother [address] [place] [address] Care Teams Living Manager Relationship Specialty Start Date End Date Giuseppe Lee MD [address] [facility] [place] [address] PCP - General Family Medicine 06/22/20
--- OUTSIDE RECORDS SUMMARY | 2024-09-12 18:28 | XMS_ITS | Clinical Summary ---
Author Organization [facility] Address [address] [place] [address] Care Team Providers Care Tug Hand Name Role Phone Giuseppe Patel MD Primary Care Provider Giuseppe Patel MD Unavailable [phone] Allergies Active Allergy Reactions Criticality Noted Date Comments Amoxicillin Rash/Dermatitis Low 07/31/2019 Metronidazole GI Intolerance/Nausea/Vomiting Low Medications LO LOESTRIN FE 1 MG-10 MCG / 10 MCG Tab Take 1 tablet by mouth daily. 3 9 Active medroxyPROGEST ERone (DEPO-PROVERA) 150 mg/mL prefilled syringe 1 ML INJECTED ONCE EVERY 3 MONTHS INTRAMUSCULAR 90 DAY(S) 2 Active fludrocortison e (FLORINEF) 0.1 MG tablet Take 1 tablet (0.1 mg total) by mouth 2 (two) times a day. 2 Active fluticasone (FloNASE) 50 mcg/spray nasal sprayIndicatio ns:Sore throat,Viral URI 2 sprays into each nostril daily. 1 each 4 Active guaiFENesin (MUCINEX) 600 MG 12 hr tabletIndicati ons:Viral URI Take 2 tablets (1,200 mg total) by mouth 2 (two) times a day. 28 tablet 4 Active pseudoephedrin e (SUDAFED) 30 MG tabletIndicati ons:Viral URI Take 1 tablet (30 mg total) by mouth 4 times daily (every 6 hours) as needed for congestion. 28 tablet 4 Active cetirizine (ZyrTEC) 10 MG tabletIndicati ons:Viral URI Take 1 tablet (10 mg total) by mouth daily. 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 10/20/2019 Knee pain, bilateral 08/18/2018 Encounters Date Type Department Care Team Description 07/28/2024 Orders Only [facility]B INBD INTERFACE [address] [place] [address] Provider, MD Maya 06/18/2024 Orders Only [address] [phone] Johnathon Loo, B[place] from Last 3 Months Immunizations Immunization Administration Dates Next Due Meningococcal MCV4O (Menveo) 04/07/2019 Family History Medical History Relation Name Comments Hyperthyroidism Maternal Aunt 1 Breast cancer Maternal Aunt 2 Diabetes type II Maternal Grandfather Hyperlipidemia Maternal Grandfather Hypertension Maternal Grandfather Diabetes type II Maternal Grandmother Hyperlipidemia Maternal Grandmother Hypertension Maternal Grandmother Hyperthyroidism Maternal Grandmother Hyperthyroidism Mother Cancer Paternal Grandfather Diabetes type II Paternal Grandfather Hyperlipidemia Paternal Grandfather Hypertension Paternal Grandfather COPD Paternal Grandmother Diabetes type II Paternal Grandmother Hyperlipidemia Paternal Grandmother Hypertension Paternal Grandmother Lung cancer Paternal Grandmother Pancreatic cancer Paternal Uncle Relation Name Status Comments Maternal Aunt 1 Maternal Aunt 2 Alive Maternal Grandfather Maternal Grandmother Mother Paternal Grandfather Paternal Grandmother Paternal Uncle Social History Tobacco Use Types Packs/Day Years Used Date Smoking Tobacco: Never Smokeless Tobacco: Never Tobacco Cessation:Counseling Given: Not Answered Alcohol Use Standard Drinks/Week Comments Yes 0 (1 standard drink = 0.6 oz pur e alcohol) socially AUDIT-C Answer Date Recorded Frequency of Alcohol Consumption Never 04/06/2018 Average Number of Drinks Not on file 018 Frequency of Binge Drinking Not on file 03/19 PHQ-2 Answer Date Recorded PHQ-2 Total Score 0 04/07/2019 Comments No Sex and Gender Information Value Date Recorded Sex Assigned at Female 2022 11:34 AM EDT Legal Sex Female 8:13 AM EDT Gender Identity Female 2022 11:34 AM EDT Sexual Orientation Heterosexual (straight) 08/13 11:34 AM EDT Last Filed Vital Signs Vital Sign Reading Time Taken Comments Blood Pressure 128/91 01/13/2024 6:56 PM EDT Pulse 92 01/13/2024 6:56 PM EDT Temperature 36.7 ??C (98 ??F) 01/13/2024 3:07 PM EDT Respiratory Rate 18 01/13/2024 3:07 PM EDT Oxygen Saturation 94% 01/13/2024 6:49 PM EDT Inhaled Oxygen Concentration - - Weight 66.7 kg (147 lb) 08/19/2023 11:22 AM EDT Height 177.8 cm (5' 10 ) 08/19/2023 11:22 AM EDT Body Mass Index 21.09 08/19/2023 11:22 AM EDT Plan of Treatment Health Maintenance Due Date Last Done Comments HPV Vaccines (1 - 3-dose series) 2017 DTaP/Tdap/Td Vaccines (1 - Tdap) 2021 Hepatitis B Vaccines (1 of 3 - 19+ 3-dose series) 2021 Influenza Vaccine 12/18/2023 03/10/2023 COVID-19 Vaccine ( - 2023-2 5 season) 2024 09/15/2020, 08/25/2020 Pap Smear (Ages 21-65) 06/18/2027 06/18/2024 Meningococcal Vaccine Discontinued 04/07/2019 HIV Screening Completed 07/26/2022 Hepatitis C Virus Screening Completed 07/26/2022 Influenza Vaccine Discontinued 03/10/2023 Pneumococcal Vaccine: Pediatric (0-5 Years) and At-Risk Patients (6 to 49 Years) Aged Out No longer eligible based on patient's age to complete this topic Procedures Procedure Name Priority Date/Time Associated Diagnosis Comments QUANTIFERON(R)-TB GOLD PLUS, 1 TUBE Routine 07/28/2024 1:30 PM EDT HEMOGLOBIN A1C Routine 07/28/2024 1:25 PM EDT TSH, HIGHLY SENSITIVE Routine 07/28/2024 1:25 PM EDT COMPLETE BLOOD COUNT, WITH DIFFERENTIAL Routine 07/28/2024 1:25 PM EDT URINALYSIS WITH REFLEX TO CULTURE Routine 07/28/2024 1:25 PM EDT COMPREHENSIVE METABOLIC PANEL Routine 07/28/2024 1:25 PM EDT LIPID PANEL REFLEX DIRECT LDL Routine 07/28/2024 1:25 PM EDT ADD URINE CULTURE QD %SBNOCULI Routine 07/28/2024 1:25 PM EDT THINPREP PAP TEST (E BUSINESS SPECIALIST) WITH HPV REFLEX, GC/CT Routine 06/18/2024 12:00 AM EST HIV 1/2 AG/AB CMIA REFLEX TO CONFIRMATION Routine 07/26/2022 3:43 PM EST HEPATITIS C VIRUS (HCV) ANTIBODY Routine 07/26/2022 3:43 PM EST from Last 3 Months or Most Recently Relevant to Health Maintenance Results * QUANTIFERON ?? -TB GOLD PLUS, 1 TUBE (07/28/2024 1:30 PM EDT) Quantiferon TB Gold Plus, 1T NEGATIVE NEGATIVE [facility] Comment: Negative test result. M. tuberculosis complex infection unlikely. Quantiferon NIL 0.03 IU/mL [facility] Quantiferon Mitogen-NIL >10.00 IU/mL [facility] Quantiferon TB1-NIL 0.00 IU/mL [facility] Quantiferon TB2-NIL <0.00 IU/mL [facility] Comment: The Nil tube value reflects the background [...] T-lymphocytes. For additional information, please refer to https://education.[employer]/faq/QUE328 (This link is being provided for informational/ educational purposes only.) 07/28/2024 1:30 PM EDT 07/28/2024 1:30 PM EDT Narrative [employer] - 07/31/2024 2:37 PM EDT 0 Ordered by External Provider. [id number] GAYETHRI, us External Provider LAB BLOOD ORDERABLES Final Result Performing Organization Address [facility]/ZIP Co de Phone Number [facility] [address] [place] [phone] * Add Urine Culture (07/28/2024 1:25 PM EDT) Pathologist [facility] [place] Reflexive Urine Culture [facility] Comment:NO CULTURE INDICATED 07/28/2024 1:25 PM EDT 07/28/2024 1:28 PM EDT Narrative [facility] - 07/29/2024 9:21 AM EDT 0; FASTING; 0; 0; 0; 0 Ordered by External Provider. [id number] GAYETHRI, us External Provider LAB AMB MICRO ORDERABLES Fi nal Result Performing Organization Address [facility]/ZIP Co de Phone Number [facility] [address] [place] [phone] * (ABNORMAL) Lipid Panel Reflex Direct LDL (07/28/2024 1:25 PM EDT) Cholesterol, Total 171 <200 mg/dL [facility] Cholesterol, HDL 37(L) > OR = 50 mg/dL [facility] Triglycerides 98 <150 mg/dL [facility] LDL Cholesterol 114(H) mg/dL (calc) [facility] Comment: Reference range: <100 Desirable range <100 mg/dL for primary prevention; ?? <70 mg/dL for patients with CHD or diabetic patients with > or = 2 CHD risk factors. LDL-C is now calculated using the Blake-Cheung calculation, which is a validated novel method providing better accuracy than the Friedewald equation in the estimation of LDL-C. Blake SS et al. RENEE. 2013;310(19): 8176-2236 (http://education.[employer]/faq/UEB521) Cholesterol/HDL Ratio 4.6 <5.0 (calc) [facility] Non HDL Chol. (LDL+VLDL) 134(H) <130 mg/dL (calc) [facility] Comment: For patients with diabetes plus 1 major ASCVD risk factor, treating to a non-HDL-C goal of <100 mg/dL (LDL-C of <70 mg/dL) is considered a therapeutic option. 07/28/2024 1:25 PM EDT 07/28/2024 1:28 PM EDT Narrative [facility] - 07/29/2024 9:21 AM EDT 0; FASTING; 0; 0; 0; 0 Ordered by External Provider. [id number], GIUSEPPE PATEL, us External Provider LAB BLOOD ORDERABLES Final Result [facility] [address] [place] [phone] * Urinalysis with Reflex to Culture (07/28/2024 1:25 PM EDT) Color YELLOW YELLOW [facility] Clarity CLEAR CLEAR [facility] Specific [place] 1.007 1.001 - 1.035 [facility] pH 6.5 5.0 - 8.0 [facility] Glucose, Urine, Random NEGATIVE NEGATIVE [facility] Bilirubin NEGATIVE NEGATIVE [facility] Ketones NEGATIVE NEGATIVE [facility] Blood NEGATIVE NEGATIVE [facility] Protein NEGATIVE NEGATIVE [facility] Nitrite NEGATIVE NEGATIVE [facility] Leukocyte Esterase NEGATIVE NEGATIVE [facility] WBC NONE SEEN < OR = 5 /HPF [facility] RBC NONE SEEN < OR = 2 /HPF [facility] Squamous Epithelial Cells 0-5 < OR = 5 /HPF [facility] Bacteria NONE SEEN NONE SEEN /HPF [facility] Hyaline Cast NONE SEEN NONE SEEN /LPF [facility] Note [facility] Comment: This urine was analyzed for the presence of WBC, RBC, bacteria, casts, and other formed elements. Only those elements seen were reported. 07/28/2024 1:25 PM EDT 07/28/2024 1:28 PM EDT Narrative [facility] - 07/29/2024 9:21 AM EDT 0; FASTING; 0; 0; 0; 0 Ordered by External Provider. [id number], GIUSEPPE PATEL, us External Provider URINE ORDERABLES Final Resu lt [facility] [address] [place] [phone] * (ABNORMAL) Complete Blood Count, with Differential (07/28/2024 1:25 PM EDT) White Blood Cell Count 10.1 3.8 - 10.8 Thousand/ uL [facility] Red Blood Cell Count 5.21(H) 3.80 - 5.10 Million/u L [facility] Hemoglobin 16.3(H) 11.7 - 15.5 g/dL [facility] Hematocrit 47.2(H) 35.0 - 45.0 % [facility] MCV 90.6 80.0 - 100.0 fL [facility] MCH 31.3 27.0 - 33.0 pg [facility] MCHC 34.5 32.0 - 36.0 g/dL [facility] Comment: For adults, a slight decrease in the calculated MCHC value (in the range of 30 to 32 g/dL) is most likely not clinically significant; however, it should be interpreted with caution in correlation with other red cell parameters and the patient's clinical condition. RDW 12.6 11.0 - 15.0 % [facility] Platelet Count 221 140 - 400 Thousand/ uL [facility] MPV 10.5 7.5 - 12.5 fL [facility] Abs Neutrophils Auto 5,444 1,500 - 7,800 cells/uL [facility] [employer] Abs Lymphocytes Auto 3,939(H) 850 - 3,900 cells/uL [facility] [employer] Abs Monocytes Auto 576 200 - 950 cells/uL [facility] Abs Eosinophils Auto 91 15 - 500 cells/uL [facility] Abs Basophils Auto 51 0 - 200 cells/uL [facility] Neutrophils Auto 53.9 % [facility] [employer] Lymphocytes Auto 39.0 % [facility] Monocytes Auto 5.7 % [facility] Eosinophils Auto 0.9 % [facility] Basophils Auto 0.5 % [facility] 07/28/2024 1:25 PM EDT 07/28/2024 1:28 PM EDT Narrative [facility] - 07/29/2024 9:21 AM EDT 0; FASTING; 0; 0; 0; 0 Ordered by External Provider. [id number], GIUSEPPE PATEL, us External Provider MD LAB BLOOD ORDERABLES Final Result [facility] [address] [place] [address] * TSH, HIGHLY SENSITIVE (07/28/2024 1:25 PM EDT) [facility] TSH, Highly Sensitive 2.48 mIU/L [facility] Comment: ?Reference Range ?> or = 20 Years ??0.40-4.50 ? Ranges ?First trimester ?0.26-2.66 ?Second trimester ?? 0.55-2.73 ?Third trimester ?0.43-2.91 07/28/2024 1:25 PM EDT 07/28/2024 1:28 PM EDT Narrative [employer] - 07/29/2024 9:21 AM EDT 0; FASTING; 0; 0; 0; 0 Ordered by External Provider. [id number], GIUSEPPE PATEL, us External Provider MD LAB BLOOD ORDERABLES Final Result Performing Organization Address City/State/[facility] Co de Phone Number [facility] [address] [place] [phone] * Hemoglobin A1C (07/28/2024 1:25 PM EDT) Hemoglobin A1C 4.5 <5.7 % of total Hgb [facility] Comment: For the purpose of screening for the presence of diabetes: <5.7% ? Consistent with the absence of diabetes 5.7-6.4% ?Consistent with increased risk for diabetes ?(prediabetes) > or =6.5% ??Consistent with diabetes This assay result is consistent with a decreased risk of diabetes. Currently, no consensus exists regarding use of hemoglobin A1c for diagnosis of diabetes in children. According to [place] Diabetes Association (ADA) guidelines, hemoglobin A1c <7.0% represents optimal control in non- diabetic patients. Different metrics may apply to specific patient populations. Standards of Medical Care in Diabetes(ADA). ?? 07/28/2024 1:25 PM EDT 07/28/2024 1:28 PM EDT Narrative [facility] - 07/29/2024 9:21 AM EDT 0; FASTING; 0; 0; 0; 0 Ordered by External Provider. [id number], GIUSEPPE PATEL, us External Provider LAB BLOOD ORDERABLES Final Result [facility] [address] [place] [address] * (ABNORMAL) Comprehensive Metabolic Panel (07/28/2024 1:25 PM EDT) Pathologist [facility] [place] Glucose 88 65 - 99 mg/dL [facility] Comment: ? Fasting reference interval Blood Urea Nitrogen (BUN) 10 7 - 25 mg/dL [facility] Creatinine 0.64 0.50 - 0.96 mg/dL [facility] Creatinine w/ eGFR 129 > OR = 60 mL/min/1. 73m2 [facility] BUN/Creatinine Ratio SEE NOTE: 6 - 22 (calc) [facility] Comment: ?? Not Reported: BUN and Creatinine are within ?? reference range. ? Sodium 136 135 - 146 mmol/L [facility] Potassium 3.8 3.5 - 5.3 mmol/L [facility] Chloride 104 98 - 110 mmol/L [facility] CO2 23 20 - 32 mmol/L [facility] Calcium 9.3 8.6 - 10.2 mg/dL [facility] Protein, Total 8.0 6.1 - 8.1 g/dL [facility] Albumin 4.7 3.6 - 5.1 g/dL [facility] Globulin 3.3 1.9 - 3.7 g/dL (calc) [facility] Albumin/Globuli n Ratio 1.4 1.0 - 2.5 (calc) [facility] Bilirubin, Total 1.8(H) 0.2 - 1.2 mg/dL [facility] Alkaline Phosphatase 89 31 - 125 U/L [facility] Aspartate Aminotrans (AST) 19 10 - 30 U/L [facility] Alanine Aminotrans (ALT) 28 6 - 29 U/L [facility] 07/28/2024 1:25 PM EDT 07/28/2024 1:28 PM EDT Narrative [facility] - 07/29/2024 9:21 AM EDT 0; FASTING; 0; 0; 0; 0 Ordered by External Provider. [id number], GIUSEPPE PATEL, External Provider LAB BLOOD ORDERABLES Final Result [facility] [address] [place] [phone] * ThinPrep Pap Test (Pack Worker Supervisor) with HPV Reflex, GC/CT (06/18/2024 12:00 AM EST) Report Report [facility] Comment: Final Gynecological Cytology Report ThinPrep Pap Test with HPV Reflex, GC/Chlamydia SPECIMEN ADEQUACY: SATISFACTORY FOR EVALUATION; ENDOCERVICAL/TRANSFORMATION ZONE COMPONENT ABSENT/INSUFFICIENT . INTERPRETATION: NEGATIVE FOR INTRAEPITHELIAL LESION OR MALIGNANCY. Reactive cellular changes associated with inflammation Electronically Signed: ??Palak Walters ??CT (ASCP) Electronically Signed: ??Katarina Peña MD CLINICAL INFORMATION: LMP: NG Clinical History: ??NG Biopsy Date: ??NG Specimen Source: ??Cervix, Endocervix Previous Pap Date: ??NG CPT Codes: 15518, 84741 ICD Codes: Z01.419 06/18/2024 06/18/2024 11: 48 PM EST Johnathon Loo CNM LAB AMB PATH/CYTO ORDERABLES Final Result [facility] [address] [place], [place] * HIV 1/2 Ag/Ab CMIA Reflex to Confirmation (07/26/2022 3:43 PM EST) HIV Ag/Ab, 4th Gen NON-REACT NICOLLE NON-REACT NICOLLE [facility] Comment: HIV-1 antigen and HIV-1/HIV-2 antibodies were not detected. There is no laboratory evidence of HIV infection. PLEASE NOTE: This information has been disclosed to you from records whose confidentiality may be protected by state law. ??If your state requires such protection, then the state law prohibits you from making any further disclosure of the information without the specific written consent of the person to whom it pertains, or as otherwise permitted by law. A general authorization for the release of medical or other information is NOT sufficient for this purpose. ?? For additional information please refer to http://education.[employer]/faq/VYK546 (This link is being provided for informational/ educational purposes only.) The performance of this assay has not been clinically validated in patients less than 2 years old. 07/26/2022 3:43 PM EST 07/26/2022 3:43 PM EST Narrative [facility] - 07/30/2022 5:59 AM EDT 0; 0; 0; 0; 0; 0; 0; 0; 0; 0 FASTING:YES FASTING: YES Ordered by External Provider. [id number], DORINDA JAY, us External Provider MD LAB BLOOD ORDERABLES Final Result [facility] [address] [place] [phone] * HEPATITIS C VIRUS (HCV) ANTIBODY (07/26/2022 3:43 PM EST) Hepatitis C Antibody NON-REACT NICOLLE NON-REACT NICOLLE [facility] Hepatitis C Antibody (s/co) 0.10 <1.00 [facility] Comment: HCV antibody was non-reactive. There is no laboratory evidence of HCV infection. In most cases, no further action is required. However, if recent HCV exposure is suspected, a test for HCV RNA (test code 81041) is suggested. For additional information please refer to http://education.[employer]/faq/JJV66g8 (This link is being provided for informational/ educational purposes only.) 07/26/2022 3:43 PM EST 07/26/2022 3:43 PM EST Narrative [facility] - 07/30/2022 5:59 AM EDT 0; 0; 0; 0; 0; 0; 0; 0; 0; 0 FASTING:YES FASTING: YES Ordered by External Provider. [id number], DORINDA JAY, us External Provider LAB BLOOD ORDERABLES Final Result Performing Organization Address City/State/[facility] Phone Number [facility] [address] [place] [phone] from Last 3 Months or Most Recently Relevant to Health Maintenance Insurance * Guarantor: Elvira iLzarraga Account Type Relation to Patient Date of Phone Billing Address Personal/Family Self [address] [place] [address] [facility] * Guarantor: Elvira Lizarraga Account Type Relation to Patient Date of Phone Billing Address Personal/Family Self 2000 [address] [place] [address] [employer] [place] PPO Member Subscriber Plan / Payer (Ef fective 2024-Present) Name:Elvira Lizarraga Relation to Subscriber:Child Name:BASSAM LIZARRAGA Date of :1963 (Home) Address: [address] [place] [address] Payer ID:[id number] (NAIC) Type:Not on file Address: [address] [place] [address] * Guarantor: BASSAM LIZARRAGA Account Type Relation to Patient Date of Phone Billing Address Personal/Family Father 1965 [address] [place] [address] [employer] [place] P[place] Member Subscriber Plan / Payer (Ef fective 2024-Present) Name:Elvira Lizarraga Relation to Subscriber:Child Name:BASSAM LIZARRAGA Date of :1963 (Home) Address: [address] [place] [address] Payer ID:[id number] (NAIC) Type:Not on file Address: [address] [place] [phone] * Guarantor: ANITHA LIZARRAGA Account Type Relation to Patient Date of Phone Billing Address Personal/Family Mother 1970 [address] [place] [address] Care Teams Tug Hand Relationship Specialty Start Date End Date Giuseppe Patel MD [address] [place] [address] PCP - General Family Medicine 08/01/20 Giuseppe Patel MD [address] [place] [address] PCP - Terry Commercial Attributed 05/19/22
--- OUTSIDE RECORDS SUMMARY | 2024-09-12 18:28 | XMS_ITS | Clinical Summary ---
Author Organization [facility] Address [address] [place] [address] Care Team Providers Care Scientific Informatics Analyst Name Role Phone Ivan Zaidi MD Primary Care Provider Ivan Atkinson MD Unavailable Unavailable Medications FLUTICASONE PROPIONATE, NASAL, (FT Allergy Relief 24 HR) 50 MCG/ACT nasal spray USE 1 TO 2 SPRAYS IN EACH NOSTRIL ONCE DAILY. 1 spray 0 03/19/2018 Active Active Problems Problem Noted Date Diagnosed Date Acute pharyngitis 03/19/2018 Upper respiratory infection 03/19/2018 Toe pain 11/05/2017 Near syncope 07/09/2017 Right knee pain 03/04/2017 Pain, hand 10/06/2015 Ankle pain 11/25/2013 Social History Tobacco Use Types Packs/Day Years Used Date Smoking Tobacco: Never Assessed Comments Unknown Sex and Gender Information Value Date Recorded Sex Assigned at Not on file Legal Sex Female 6:18 PM EDT Gender Identity Not on file Sexual Orientation Not on file Last Filed Vital Signs Vital Sign Reading Time Taken Comments Blood Pressure 108/70 03/19/2018 11:19 AM EDT Pulse 72 03/19/2018 11:19 AM EDT Temperature 36.9 ??C (98.4 ??F) 03/19/2018 11:19 AM E DT Respiratory Rate 17 03/19/2018 11:19 AM EDT Oxygen Saturation 98% 03/19/2018 11:19 AM EDT Inhaled Oxygen Concentration - - Weight 59.4 kg (131 lb) 03/19/2018 11:19 AM EDT Height 177.8 cm (5' 10 ) 03/04/2017 11:02 AM EDT Body Mass Index - - Plan of Treatment Health Maintenance Due Date Last Done Comments Hepatitis C Screening 2002 HPV Vaccine (1 - 3-dose series) 2017 Chlamydia 2018 Pap Smear 2018 DTaP/Tdap/Td (1 - Tdap) 2020 Hep B (1 of 3 - 19+ 3-dose series) 2021 COVID-19 Vaccine (1 - 2023-2 5 season) 2024 Influenza (#1) 2024 Zoster (Shingrix) (1 of 2) 2052 Hep A Aged Out No longer eligi ble based on patient's age to complete this topic Hib Aged Out No longer eligi ble based on patient's age to complete this topic Meningococcal ACWY Aged Out No longer eligible based on patient's age to complete this topic Pneumococcal Aged Out No longer eligi ble based on patient's age to complete this topic Care Teams Scientific Informatics Analyst Relationship Specialty Start Date End Date Ivan Zaidi MD PCP - General 12/23/22 Ivan Zaidi MD PCP - Backup PCP 06/19/23
--- OUTSIDE RECORDS SUMMARY | 2024-09-12 18:28 | XMS_ITS | Encounter Summary ---
Author Organization [facility] Address [address] [place] [address] Care Team Providers Care Site Lead Name Role Phone Rao Katy HOLMAN Primary Care Provider Aki Liang MD Unavailable [phone] Katarina Ma DO Unavailable [phone] Aki Reyes MD Unavailable [phone] [place] Indian[place]ina rubio DO Unavailable [phone] Pcp, No Primary Care Provider Unavailabl e Giuseppe Lee MD Primary Care Provider Giuseppe Lee MD Unavailable [phone] Giuseppe Lee MD Unavailable [phone] Giuseppe Lee MD Unavailable [phone] Giuseppe Lee MD Unavailable [phone] Encounter Details Date Type Department Care Team (Late st Contact Info) Description 04/08/2019 Scanned Document [facility] ORTHO SURGERY SCAN Orthopedic Surgery, Scan Social History Tobacco Use Types Packs/Day Years [...] AM EDT documented as of this encounter Plan of Treatment Not on file documented as of this encounter Visit Diagnoses Not on filedocumented in this encounter Care Teams Site Lead Relationship Specialty Start Date End Date Katy Yeh APRN PCP - General Family Medicine 04/06/18 03/15/20 Aki Reyes MD [address] [place] [address] PCP - [employer] Attributed 02/16/19 05/18/19 Katarina Ma DO [address] [place] [address] PCP - [employer] Attributed 05/19/19 08/17/19 Aki Reyes MD [address] [place] [address] PCP - [employer] Attributed 08/18/19 11/16/19 Katarina Ma DO [address] [place] [address] PCP - [employer] Attributed 11/17/19 08/16/20 Pcp, No PCP - General General Medicine 05/29/20 07/31/20 [place] [address] [place] [address] PCP - General Family Medicine 08/01/20 Giuseppe Lee MD [address] [place] [address] PCP - [employer] Attributed 08/17/20 04/17/21 Giuseppe Lee MD [address] [facility] [address] PCP - [place] [employer] Attributed 09/16/21 10/16/21 Giuseppe Lee MD [address] [facility] [place] [address] PCP - [place] [employer] Attributed 11/16/21 03/18/22 Giuseppe Lee MD [address] [place] [place] [address] PCP - [place] [employer] Attributed 05/19/22 documented as of this encounter
--- OUTSIDE RECORDS SUMMARY | 2024-09-12 18:28 | XMS_ITS | Clinical Summary ---
Author Organization [facility] Address [address] [place] [address] Care Team Providers Care Financial Center Manager Name Role Phone Giuseppe Lee MD Primary Care Provider Allergies Active Allergy Reactions Criticality Noted Date Comments Amoxicillin Rash Low 07/31/2019 Metronidazole Nausea And Vomiting Low 10/20/2022 Medications Medication Sig Dispensed Refills Start Date End Date Status pantoprazole (PROTONIX) 40 MG tablet 0 09/14/2021 Active fludrocortisone (FLORINEF) tablet 0.1 mg TAKE 2 TABLETS (0.2MG) BY MOUTH TWICE A DAY 120 tablet 0 03/10/2023 Active Active Problems Problem Noted Date Diagnosed Date Leg swelling 02/04/2023 Nonrheumatic mitral valve regurgitation 04/09/20 Nonrheumatic tricuspid valve regurgitation 04/09 SOB (shortness of breath) 04/09/2022 Orthostatic hypotension 11/20/2021 Syncope and collapse 09/18/2021 Palpitations 09/18/2021 Near syncope 07/26/2021 Raynaud's disease without gangrene 07/18/2020 Social History Tobacco Use Types Packs/Day Years Used Date Smoking Tobacco: Never Assessed Sex and Gender Information Value Date Recorded Sex Assigned at Female 02/27/2023 7:17 PM EDT Gender Identity Not on file Sexual Orientation Not on file Job Start Date Occupation Industry Not on file Not on file Not on file Last Filed Vital Signs Vital Sign Reading Time Taken Comments Blood Pressure 107/76 02/28/2023 1:06 AM EDT Pulse 85 02/28/2023 1:06 AM EDT Temperature 36.9 ??C (98.4 ??F) 02/28/2023 1:06 AM ED T Respiratory Rate 16 02/28/2023 1:06 AM EDT Oxygen Saturation 99% 02/28/2023 1:06 AM EDT Inhaled Oxygen Concentration - - Weight 65.8 kg (145 lb) 02/27/2023 7:25 PM EDT Height 177.8 cm (5' 10 ) 02/27/2023 7:25 PM EDT Body Mass Index 20.81 02/27/2023 7:25 PM EDT Plan of Treatment Health Maintenance Due Date Last Done Comments Hepatitis B Vaccines (1 of 3 - 3-dose series) 2002 Hepatitis C Screening 2002 Depression Screening 2014 Gonorrhea and Chlamydia Screening 08/14/2015 Preventative Health Evaluation 2020 DTap / Tdap / Td (1 - Tdap) 2021 Cervical Cancer Screening (Pap Smear) 08/14/2023 COVID-19 Vaccine (2023-2 5 season) 2024 09/15/2020, 08/25/2020 Influenza Vaccine (#1) 2024 Pneumococcal Vaccine Aged Out No long er eligible based on patient's age to complete this topic RSV Ped < 20 months Aged Out No longe r eligible based on patient's age to complete this topic Care Teams Financial Center Manager Relationship Specialty Start Date End Date Giuseppe Lee MD [address] [facility] [place] [address] PCP - General Family Medicine 06/06/20
--- OUTSIDE RECORDS SUMMARY | 2024-09-12 18:28 | XMS_ITS | Encounter Summary ---
Author Organization [facility] Address [address] [place] [address] Care Team Providers Care Varnish Melter Name Role Phone Rao Katy HOLMAN Primary Care Provider Aki Liang MD Unavailable [phone] Katarina Ma DO Unavailable [phone] Aki Reyes MD Unavailable [phone] [place]ina rubio DO Unavailable [phone] Pcp, No Primary Care Provider Unavailabl e Giuseppe Lee MD Primary Care Provider Giuseppe Lee MD Unavailable [phone] Giuseppe Lee MD Unavailable [phone] Giuseppe Lee MD Unavailable [phone] Giuseppe Lee MD Unavailable [phone] Encounter Details Date Type Department Care Team (Late st Contact Info) Description 07/20/2018 Scanned Document [facility] [address] [place] [address] Primary Care, Scan Social History Tobacco Use Types Packs/Day [...] on filedocumented in this encounter Care Teams Varnish Melter Relationship Specialty Start Date End Date Katy Yeh APRN PCP - General Family Medicine 04/06/18 03/15/20 Aki Reyes MD [address] [place], [place] [id number] PCP - [employer] Attributed 02/16/19 05/18/19 Katarina Ma DO [address] [place] [address] PCP - [employer] Attributed 05/19/19 08/17/19 Aki eRyes MD [address] [place] [address] PCP - [employer] Attributed 08/18/19 11/16/19 Katarina Ma DO [address] [place] [address] PCP - [employer] Attributed 11/17/19 08/16/20 Pcp, No PCP - General General Medicine 05/29/20 07/31/20 Giuseppe Lee MD [address] [place] [address] PCP - General Family Medicine 08/01/20 Giuseppe Lee MD [address] [place] [address] PCP - [employer] Attributed 08/17/20 04/17/21 Giuseppe Lee MD [address] [place] [address] PCP - [place] [employer] Attributed 09/16/21 10/16/21 Giuseppe Lee MD [address] [facility] [place] [address] PCP - [place] [employer] Attributed 11/16/21 03/18/22 Giuseppe Lee MD [address] [facility] [place] [address] PCP - [place] [employer] Attributed 05/19/22 documented as of this encounter
--- OUTSIDE RECORDS SUMMARY | 2024-09-12 18:28 | XMS_ITS | Encounter Summary ---
Author Organization [facility] Address [address] [place] [address] Care Team Providers Care Police Service Technician Name Role Phone Katarina Ma DO Unavailable [phone] Giuseppe Lee MD Primary Care Provider Giuseppe Lee MD Unavailable [phone] Giuseppe Lee MD Unavailable [phone] Giuseppe Lee MD Unavailable [phone] Giuseppe Lee MD Unavailable [phone] Encounter Details Date Type Department Care Team (Late st Contact Info) Description 08/02/2020 Scanned Document [facility] [address] [place] [address] Giuseppe Lee MD [address] [place] [address] Social History Tobacco Use Types Packs/Day Years [...] Orientation Heterosexual (straight) 08/13 11:34 AM EDT COVID-19 Exposure Response Date Recorded In the last month, have you been in contact with someone who was confirmed or suspected to have Coronavirus / COVID-19? No / Unsure 08/01/2020 7:16 PM EDT documented as of this encounter Plan of Treatment Not on file documented as of this encounter Visit Diagnoses Not on filedocumented in this encounter Care Teams Police Service Technician Relationship Specialty Start Date End Date Katarina Ma DO [address] [place] [address] PCP - [employer] Attributed 11/17/19 08/16/20 Giuseppe Lee MD [address] [place] [address] PCP - General Family Medicine 08/01/20 Giuseppe Lee MD [address] [place] [address] PCP - [employer] Attributed 08/17/20 04/17/21 Giuseppe Lee MD [address] [place] [address] PCP - [place] Commercial Attributed 09/16/21 10/16/21 Giuseppe Lee MD [address] [place] [address] PCP - [place] [employer] Attributed 11/16/21 03/18/22 Giuseppe Lee MD [address] [place] [address] PCP - [place] [employer] Attributed 05/19/22 documented as of this encounter
--- OUTSIDE RECORDS SUMMARY | 2024-09-12 18:28 | XMS_ITS | Encounter Summary ---
Author Organization [facility] Address [address] [place] [address] Care Team Providers Care Preschool Director Name Role Phone Giuseppe Lee MD Primary Care Provider Giuseppe Lee MD Unavailable [phone] Encounter Details Date Type Department Care Team (Late st Contact Info) Description 04/30/2024 Scanned Document [facility] [address] [phone] Jolie Heath, DO [address] [place] [address] Social History Tobacco Use Types Packs/Day Years Used Date Smoking Tobacco: Never Smokeless Tobacco: Never Alcohol Use Standard Drinks/Week Comments Yes 0 [...] on filedocumented in this encounter Care Teams Preschool Director Relationship Specialty Start Date End Date Giuseppe Lee MD [address] [place] [address] PCP - General Family Medicine 08/01/20 Giuseppe Lee MD [address] [place] [address] PCP - [place] [employer] Attributed 05/19/22 documented as of this encounter
--- OUTSIDE RECORDS SUMMARY | 2024-09-12 18:28 | XMS_ITS | Encounter Summary ---
Author Organization [facility] Address [address] [place] [address] Care Team Providers Care Business Analysis Specialist Name Role Phone Rao Katy HOLMAN Primary Care Provider Aki Liang MD Unavailable [phone] Katarina Ma DO Unavailable [phone] Aki Reyes MD Unavailable [phone] [place] rubio DO Unavailable [phone] Pcp, No Primary Care Provider Unavailabl e Giuseppe Lee MD Primary Care Provider Giuseppe Lee MD Unavailable [phone] Giuseppe Lee MD Unavailable [phone] Giuseppe Lee MD Unavailable [phone] Giuseppe Lee MD Unavailable [phone] Encounter Details Date Type Department Care Team (Late st Contact Info) Description 04/14/2018 Scanned Document [facility] [address] [place] [address] Provider, Generic Social History Tobacco Use Types [...] on filedocumented in this encounter Care Teams Business Analysis Specialist Relationship Specialty Start Date End Date Katy Yeh APRN PCP - General Family Medicine 04/06/18 03/15/20 Aki Reyes MD [address] [place], [place] [id number] PCP - [employer] Attributed 02/16/19 05/18/19 Katarina Ma DO [address] [place] [address] PCP - [employer] Attributed 05/19/19 08/17/19 Aki Reyes MD [address] [place] [address] PCP - [employer] Attributed 08/18/19 11/16/19 Katarina Ma DO [address] [place] [address] PCP - [employer] Attributed 11/17/19 08/16/20 Pcp, No PCP - General General Medicine 05/29/20 07/31/20 [place] [address] [place] [address] PCP - General Family Medicine 08/01/20 Giuseppe eLe MD [address] [place] [address] PCP - [employer] Attributed 08/17/20 04/17/21 Giuseppe Lee MD [address] [facility] [place] [address] PCP - [place] Commercial Attributed 09/16/21 10/16/21 Giuseppe Lee MD [address] [facility] [place] [address] PCP - [place] [employer] Attributed 11/16/21 03/18/22 Giuseppe Lee MD [address] [facility] [place] [address] PCP - [place] Commercial Attributed 05/19/22 documented as of this encounter
--- OUTSIDE RECORDS SUMMARY | 2024-09-12 18:28 | XMS_ITS ---
Author Name [facility] Organization Unknown Results Test Name/Text Value Interpretation Date Range Source Potassium BldV-sCnc 4.1mmol/L Normal [id number] 3.5 - 5 .1 [facility] Sodium BldV-sCnc 142mmol/L Normal [id number] 135 - 145 [facility] Hct VFr BldV 44% Normal [id number] 37 - 47 [facility] Hgb BldV-mCnc 15g/dL Normal [id number] 12.5 - 16 [facility]_ [facility] GFRE 114 Normal [id number] 60 - [facility] CHLORIDE 107mmol/L Normal [id number] 98 - 107 [facility] POTASSIUM SERUM 4.5mmol/L Normal [id number] 3.5 - 5.1 C [facility] CO2 27mmol/L Normal [id number] 20 - 31 [facility] SODIUM 139mmol/L Normal [id number] 136 - 145 [facility] BUN 12mg/dL Normal [id number] 9 - 23 [facility] GLUCOSE 98mg/dL Normal [id number] 74 - 106 [facility] CREATININE 0.69mg/dL Normal [id number] 0.55 - 1.02 [facility] PATIENT FASTING? UNKNOWN Normal [id number] [facility] HCT 43.9% Normal [id number] 36 - 46 [facility] LYMPHS 44% Normal [id number] 16 - 50 [facility] GRANULOCYTES 46% Normal [id number] 23 - 78 [facility] ABSOLUTE IMMATURE GRANULOCYTES 0K/uL Normal [id number] 0 - 0.3 [facility] MPV 10fL Normal [id number] 8 - 12 [facility] BASOPHILS 1% Normal [id number] 0 - 2 [facility] RBC 5.11M/uL Normal [id number] 4 - 5.4 [facility] MCH 31PG Normal 27 - 34 [facility] RDW 13.2% Normal [id number] 11.1 - 13.3 [facility] PLATELET COUNT 244K/uL Normal [id number] 150 - 480 [facility] ABSOLUTE GRANULOCYTES 3.8K/uL Normal [id number] 2.2 - 7.3 [facility] MONOCYTES 8% Normal 0 - 12 [facility] ABSOLUTE BASO 0.1K/uL Normal [id number] 0 - 0.2 [facility] NUCLEATED RBC 0% Normal 0 - 0.2 [facility] IMMATURE GRANULOCYTES 0% Normal 0 - 0.45 [facility] EOSINOPHILS 1% Normal 0 - 6 [facility] HGB 15.6g/dL Normal 12.1 - 15.7 [facility] MCHC 35.5g/dL Normal [id number] 31 - 36 [facility] ABSOLUTE MONOS 0.6K/uL Normal [id number] 0.2 - 1.5 [facility] ABSOLUTE NUCLEATED RBC 0K/uL Normal 0 - 0.012 [facility] ABSOLUTE LYMPHS 3.7K/uL Normal [id number] 1.5 - 4.9 C [facility] WBC 8.3K/uL Normal [id number] 3.7 - 10.3 [facility] MCV 86fL Normal [id number] 83 - 102 [facility] ABSOLUTE EOS 0.1K/uL Normal [id number] 0 - 0.7 [facility] D dimer FEU PPP-mCnc 150ng/mLDDU Normal [id number] - 23 0 [facility] GFR/BSA.pred SerPlBld ACS-EMY-CvLOow 90 Normal 59 - H[facility]CT Bilirub SerPl-mCnc 1.9mg/dL Above high normal [id number] 0.2 - 1 [facility] Anion Gap Bld-sCnc 13 Normal [id number] 7 - 17 [facility] Albumin/Glob SerPl 1.3Ratio Normal 1 - 3 [facility] CO2 SerPl-sCnc 22mmol/L Normal 22 - 33 HH CCT Albumin SerPl-mCnc 4.6g/dL Normal 3.5 - 5 [facility] ALT SerPl-cCnc 35U/L Normal 10 - 50 HH CCT Creat SerPl-mCnc 0.8mg/dL Normal 0.4 - 1.1 H[facility]CT Prot SerPl-mCnc 8.1g/dL Normal 6.3 - 8.3 H HCCT AST SerPl-cCnc 24U/L Normal 10 - 50 HH CCT Potassium SerPl-sCnc 4mmol/L Normal 3.4 - 5.3 H[facility]CT ALP SerPl-cCnc 121U/L Normal 32 - 122 [facility] CCT Globulin Ser Calc-mCnc 3.5g/dL Normal 1.5 - 3.9 [facility] Glucose SerPl-mCnc 84mg/dL Normal 65 - 99 [facility] Chloride SerPl-sCnc 102mmol/L Normal 98 - 10 7 [facility] BUN/Creat SerPl 14Ratio Normal 10 - 25 H HCCT Sodium SerPl-sCnc 137mmol/L Normal 136 - 145 [facility] Calcium SerPl-mCnc 9.1mg/dL Normal 8.7 - 10.5 [facility] BUN SerPl-mCnc 11mg/dL Normal 8 - 21 HH CCT Monocytes/leuk NFr Bld Auto 6.1% Normal [facility] Platelet num Bld Auto 247Thou/uL Normal 150 - 450 [facility] PMV Bld Auto 9.4fL Normal 7.5 - 12.5 [facility] Imm Granulocytes num Bld Auto 0.05Thou/uL Normal 0 - 0.1 [facility] Monocytes num Bld Auto 0.94Thou/uL Normal [id number] 0.2 - 1.5 [facility] WBC num Bld Auto 15.4Thou/uL Above high normal [id number] 4 - 11 [facility] Lymphocytes num Bld Auto 4.5Thou/uL Normal [id number] 1.5 - 4.5 [facility] Lymphocytes/leuk NFr Bld Auto 29.2% Normal [id number] [facility] RDW RBC Auto-Rto 13.1% Normal 11.5 - 14.5 [facility] RBC num Bld Auto 5.37Mil/uL Normal 4 - 5.4 [facility] MCHC RBC Auto-mCnc 35.7g/dL Normal 30 - 36 [facility] Eosinophil num Bld Auto 0.76Thou/uL Above high normal 0 - 0.7 [facility] Eosinophil/leuk NFr Bld Auto 4.9% Normal [id number] [facility] Hct VFr Bld Auto 45.4% Normal 35 - 47 [facility] Basophils/leuk NFr Bld Auto 0.7% Normal [facility] Imm Granulocytes/leuk NFr Bld Auto 0.3% Normal [id number] [facility] Hgb Bld-mCnc 16.2g/dL Above high normal 11. 7 - 15.7 [facility] Basophils num Bld Auto 0.11Thou/uL Normal 0 - 0.2 [facility] Neutrophils/leuk NFr Bld Auto 58.8% Normal [facility] Neutrophils num Bld Auto 9.06Thou/uL Above high normal [id number] 2 - 7.5 [facility] MCV RBC Auto 85fL Normal 80 - 100 [facility] T MCH RBC Qn Auto 30.2pg Normal 26 - 34 H HCCT GLUCOSE 97mg/dL Normal 74 - 100 [facility] AST (SGOT) 105U/L Above high normal [id number] 15 - 37 [facility] SODIUM 144mmol/L Normal 136 - 145 [facility] PROTEIN, TOTAL 5.8g/dL Below low normal 6.4 - 8.2 [facility] ALT (SGPT) 233U/L Above high normal [id number] 12 - 78 [facility] GLOBULIN 2.8g/dL Normal 2.4 - 4.2 [facility] BILIRUBIN,TOTAL 1.3mg/dL Above high normal [id number] 0.2 - 1 [facility] BUN 8mg/dL Normal [id number] 7 - 18 [facility] CHLORIDE 112mmol/L Above high normal [id number] 98 - 107 [facility] ALBUMIN 3g/dL Below low normal 3.4 - 5 [facility] POTASSIUM SERUM 3.4mmol/L Below low normal 3.5 - 5.1 [facility] A/G RATIO 1.1g/dL Normal [facility] ALKALINE PHOSPHATASE 91U/L Normal [id number] 50 - 1 36 [facility] CALCIUM 7.9mg/dL Below low normal [id number] 8.5 - 10.1 [facility] CO2 24mmol/L Normal 21 - 32 [facility] BUN/CREAT.RATIO 11.4 Normal C [facility] CREATININE 0.7mg/dL Normal [id number] 0.55 - 1.3 [facility] PATIENT FASTING? NO Normal [id number] [facility] UNCON BILI(INDIRECT) 1mg/dL Normal [id number] 0 - 1 [facility] CONJ BILI (DIRECT) 0.3mg/dL Above high normal [id number] 0 - 0.2 [facility] GFRE 112 Normal 60 - [facility] BASOPHILS 0% Normal [id number] 0 - 2 [facility] PLATELET COUNT 197K/uL Normal [id number] 150 - 480 [facility] ABSOLUTE LYMPHS 1.8K/uL Normal [id number] 1.5 - 4.9 C [facility] ABSOLUTE GRANULOCYTES 8.3K/uL Above high normal [id number] 2.2 - 7.3 [facility] MCHC 35.8g/dL Normal [id number] 31 - 36 [facility] MCH 31PG Normal [id number] 27 - 34 [facility] ABSOLUTE BASO 0K/uL Normal [id number] 0 - 0.2 [facility] WBC 11K/uL Above high normal [id number] 3.7 - 10.3 [facility] MCV 86fL Normal [id number] 83 - 102 [facility] MONOCYTES 9% Normal [id number] 0 - 12 [facility] ABSOLUTE NUCLEATED RBC 0K/uL Normal [id number] 0 - 0.012 [facility] LYMPHS 16% Normal [id number] 16 - 50 [facility] EOSINOPHILS 0% Normal [id number] 0 - 6 [facility] MPV 10fL Normal [id number] 8 - 12 [facility] NUCLEATED RBC 0% Normal [id number] 0 - 0.2 [facility] IMMATURE GRANULOCYTES 0% Normal [id number] 0 - 0.45 [facility] HGB 13.3g/dL Normal [id number] 12.1 - 15.7 [facility] ABSOLUTE IMMATURE GRANULOCYTES 0K/uL Normal [id number] 0 - 0.3 [facility] ABSOLUTE MONOS 1K/uL Normal [id number] 0.2 - 1.5 CT [facility] RBC 4.34M/uL Normal [id number] 4 - 5.4 [facility] RDW 13.2% Normal [id number] 11.1 - 13.3 [facility] ABSOLUTE EOS 0K/uL Normal [id number] 0 - 0.7 [facility] GRANULOCYTES 75% Normal [id number] 23 - 78 [facility] HCT 37.1% Normal [id number] 36 - 46 [facility] GFRE 104 Normal [id number] 60 - [facility] BUN 7mg/dL Normal [id number] 7 - 18 [facility] CO2 23mmol/L Normal [id number] 21 - 32 [facility] A/G RATIO 1.1g/dL Normal [id number] [facility] ALT (SGPT) 32U/L Normal [id number] 12 - 78 [facility] BUN/CREAT.RATIO 9.3 Normal [id number] C [facility] ALBUMIN 3g/dL Below low normal [id number] 3.4 - 5 [facility] PROTEIN, TOTAL 5.7g/dL Below low normal [id number] 6.4 - 8.2 [facility] GLOBULIN 2.7g/dL Normal [id number] 2.4 - 4.2 [facility] SODIUM 143mmol/L Normal [id number] 136 - 145 [facility] CREATININE 0.75mg/dL Normal [id number] 0.55 - 1.3 [facility] GLUCOSE 90mg/dL Normal [id number] 74 - 100 [facility] CHLORIDE 115mmol/L Above high normal [id number] 98 - 107 [facility] ALKALINE PHOSPHATASE 85U/L Normal [id number] 50 - 1 36 [facility] AST (SGOT) 11U/L Below low normal [id number] 15 - 37 [facility] POTASSIUM SERUM 3.6mmol/L Normal [id number] 3.5 - 5.1 [facility] BILIRUBIN,TOTAL 1.9mg/dL Above high normal [id number] 0.2 - 1 [facility] PATIENT FASTING? YES Normal [id number] [facility] TSH WITH REFLEX T4 FREE 1.96uIU/mL Normal [id number] 0.35 - 4.5 [facility] UNCON BILI(INDIRECT) 2.2mg/dL Above high normal [id number] 0 - 1 [facility] LIPASE 52U/L Normal [id number] 13 - 75 [facility] ALKALINE PHOSPHATASE 121U/L Normal [id number] 50 - 1 36 [facility] POTASSIUM SERUM 3.8mmol/L Normal [id number] 3.5 - 5.1 C [facility] SODIUM 138mmol/L Normal [id number] 136 - 145 [facility] ALT (SGPT) 52U/L Normal [id number] 12 - 78 [facility] CREATININE 0.88mg/dL Normal [id number] 0.55 - 1.3 [facility] AST (SGOT) 21U/L Normal [id number] 15 - 37 [facility] ALBUMIN 4g/dL Normal [id number] 3.4 - 5 [facility] PROTEIN, TOTAL 7.8g/dL Normal [id number] 6.4 - 8.2 CT [facility] BUN/CREAT.RATIO 15.9 Normal [id number] C [facility] GLUCOSE 100mg/dL Normal [id number] 74 - 100 [facility] GLOBULIN 3.8g/dL Normal [id number] 2.4 - 4.2 [facility] BILIRUBIN,TOTAL 2.6mg/dL Above high normal [id number] 0.2 - 1 [facility] BUN 14mg/dL Normal [id number] 7 - 18 [facility] A/G RATIO 1.1g/dL Normal [id number] [facility] CHLORIDE 106mmol/L Normal [id number] 98 - 107 [facility] CO2 27mmol/L Normal [id number] 21 - 32 [facility] PATIENT FASTING? UNKNOWN Normal [id number] [facility] CONJ BILI (DIRECT) 0.4mg/dL Above high normal [id number] 0 - 0.2 [facility] GFRE 86 Normal [id number] 60 - [facility] PROTEIN NEG Normal [id number] - [facility] PH 6 Normal [id number] 5 - 8 [facility] APPEARANCE CLEAR Normal [id number] - [facility] OCCASIONAL Normal [id number] [facility] WBC 1/HPF Above high normal [id number] 0 - 0 [facility] RBC 5/HPF Above high normal [id number] 0 - 0 [facility] UROBILINOGEN 1MG/DL Normal [id number] - [facility] LEUK. ESTERASE NEG Normal [id number] - [facility] BACTERIA 1+ Critically abnormal [id number] - [facility] NITRITE NEG Normal [id number] - [facility] SPECIFIC GRAVITY 1.025 Normal [id number] 1.005 - 1.03 [facility] BILIRUBIN NEGATIVE Normal [id number] - [facility] GLUCOSE NEG Normal [id number] - [facility] BLOOD MODERATE Critically abnormal [id number] - [facility] KETONES NEGATIVE Normal [id number] - [facility] COLOR YELLOW Normal [id number] - [facility] RDW 13.2% Normal [id number] 11.1 - 13.3 [facility] ABSOLUTE IMMATURE GRANULOCYTES 0.1K/uL Normal [id number] 0 - 0.3 [facility] MONOCYTES 8% Normal [id number] 0 - 12 [facility] MCV 85fL Normal [id number] 83 - 102 [facility] ABSOLUTE NUCLEATED RBC 0K/uL Normal [id number] 0 - 0.012 [facility] ABSOLUTE MONOS 1.1K/uL Normal [id number] 0.2 - 1.5 CT [facility] ABSOLUTE GRANULOCYTES 8K/uL Above high normal [id number] 2.2 - 7.3 [facility] ABSOLUTE EOS 0.3K/uL Normal [id number] 0 - 0.7 [facility] NUCLEATED RBC 0% Normal [id number] 0 - 0.2 [facility] MPV 10fL Normal [id number] 8 - 12 [facility] EOSINOPHILS 2% Normal 0 - 6 [facility] HGB 15.7g/dL Normal [id number] 12.1 - 15.7 [facility] RBC 5.18M/uL Normal [id number] 4 - 5.4 [facility] BASOPHILS 1% Normal [id number] 0 - 2 [facility] ABSOLUTE LYMPHS 4.5K/uL Normal [id number] 1.5 - 4.9 C [facility] HCT 44.1% Normal [id number] 36 - 46 [facility] LYMPHS 32% Normal [id number] 16 - 50 [facility] MCH 30PG Normal [id number] 27 - 34 [facility] PLATELET COUNT 243K/uL Normal [id number] 150 - 480 [facility] IMMATURE GRANULOCYTES 0% Normal [id number] 0 - 0.45 [facility] WBC 14.1K/uL Above high normal [id number] 3.7 - 10.3 [facility] MCHC 35.6g/dL Normal [id number] 31 - 36 [facility] ABSOLUTE BASO 0.1K/uL Normal [id number] 0 - 0.2 [facility] GRANULOCYTES 57% Normal [id number] 23 - 78 [facility] URINE CULTURE NO GROWTH AT < 1000 CFU/ML Normal [id number] [facility] GLYCOHEMOGLOBIN (A1C) 4.4% Normal [id number] 4 - 5.6 [facility] RBC 2/HPF Above high normal [id number] 0 - 0 [facility] EPI CELLS 1+ Normal [facility] WBC 6/HPF Above high normal 0 - 0 [facility] [place]. ESTERASE Large Critically abnormal - [facility] BILIRUBIN Negative Normal - [facility] GLUCOSE Negative Normal - [facility] PROTEIN Negative Normal - [facility] COLOR Yellow Normal - [facility] UROBILINOGEN 0.2mg/dL Normal - [facility] SPECIFIC GRAVITY 1.015 Normal 1.005 - 1.03 [facility] NITRITE Negative Normal - [facility] BLOOD Small Critically abnormal - [facility] KETONES Negative Normal - [facility] APPEARANCE Cloudy Normal - [facility] Normal 5 - 8 [facility] TSH 1.11uIU/mL Normal 0.35 - 4.5 [facility] HDL 38mg/dL Below low normal - [facility] LDL 103 Normal 0 - 129 [facility] H TRIGLYCERIDE WITH LDLD REFLEX 62mg/dL Normal [id number] - 150 [facility] CHOLESTEROL 153mg/dL Normal [id number] - 200 [facility] UNCON BILI(INDIRECT) 2.3mg/dL Above high normal 6 0 - 1 [facility] CONJ BILI (DIRECT) 0.4mg/dL Above high normal 0 - 0.2 [facility] GFRE 105 Normal 60 - [facility] PROTEIN, TOTAL 7.8g/dL Normal 6.4 - 8.2 CT [facility] A/G RATIO 1.1g/dL Normal [facility] H ALKALINE PHOSPHATASE 119U/L Normal 50 - 1 36 [facility] GLOBULIN 3.7g/dL Normal 2.4 - 4.2 [facility] BILIRUBIN,TOTAL 2.7mg/dL Above high normal 0.2 - 1 [facility] ALBUMIN 4.1g/dL Normal 3.4 - 5 [facility] CHLORIDE 108mmol/L Above high normal 98 - 107 [facility] GLUCOSE 82mg/dL Normal 74 - 100 [facility] CALCIUM 8.9mg/dL Normal 8.5 - 10.1 [facility] ALT (SGPT) 18U/L Normal 12 - 78 [facility] CREATININE 0.75mg/dL Normal 0.55 - 1.3 [facility] AST (SGOT) 10U/L Below low normal 15 - 37 [facility] POTASSIUM SERUM 4.1mmol/L Normal 3.5 - 5.1 C [facility] CO2 25mmol/L Normal 21 - 32 [facility] BUN/CREAT.RATIO 14.7 Normal [facility] SODIUM 141mmol/L Normal 136 - 145 [facility] BUN 11mg/dL Normal 7 - 18 [facility] H PATIENT FASTING? YES Normal [id number] [facility] MCH 30PG Normal [id number] 27 - 34 [facility] WBC 6.8K/uL Normal [id number] 3.7 - 10.3 [facility] ABSOLUTE BASO 0K/uL Normal [id number] 0 - 0.2 [facility] BASOPHILS 1% Normal 0 - 2 [facility] NUCLEATED RBC 0% Normal 0 - 0.2 [facility] MCV 84fL Normal [id number] 83 - 102 [facility] HCT 44.9% Normal [id number] 36 - 46 [facility] ABSOLUTE IMMATURE GRANULOCYTES 0K/uL Normal [id number] 0 - 0.3 [facility] HGB 15.8g/dL Above high normal 12.1 - 15.7 [facility] MPV 10fL Normal [id number] 8 - 12 [facility] MONOCYTES 8% Normal 0 - 12 [facility] H PLATELET COUNT 221K/uL Normal [id number] 150 - 480 [facility] ABSOLUTE NUCLEATED RBC 0K/uL Normal [id number] 0 - 0.012 [facility] ABSOLUTE GRANULOCYTES 3.8K/uL Normal [id number] 2.2 - 7.3 [facility] IMMATURE GRANULOCYTES 0% Normal [id number] 0 - 0.45 [facility] LYMPHS 34% Normal [id number] 16 - 50 [facility] ABSOLUTE LYMPHS 2.3K/uL Normal [id number] 1.5 - 4.9 C [facility] RBC 5.32M/uL Normal [id number] 4 - 5.4 [facility] MCHC 35.2g/dL Normal [id number] 31 - 36 [facility] ABSOLUTE EOS 0.1K/uL Normal [id number] 0 - 0.7 [facility] RDW 12.7% Normal [id number] 11.1 - 13.3 [facility] GRANULOCYTES 56% Normal [id number] 23 - 78 [facility] EOSINOPHILS 1% Normal [id number] 0 - 6 [facility] ABSOLUTE MONOS 0.5K/uL Normal [id number] 0.2 - 1.5 CT [facility] History of Medication Use Medication Directions Dispensed Refills Start Date End Date Status ondansetron (ZOFRAN-ODT) 4 MG disintegrating tablet Take 1 tablet (4 mg total) by mouth 3 times daily (every 8 hours) as needed for nausea or vomiting. Place tablet on tongue to dissolve. 3 08/19/19 24 active metroNIDAZOLE (FLAGYL) 500 MG tablet Take 1 tablet (500 mg total) by mouth 2 (two) times a day. Take with meals or food to reduce stomach upset. 2 08/19/19 24 active fludrocortisone (FLORINEF) 0.1 mg tablet Take 0.1 mg by mouth 2 (two) times daily 2 active fludrocortisone (FLORINEF) 0.1 MG tablet Take 0.1 mg by mouth 2 (two) times a day. 2 active ondansetron (ZOFRAN) 4 MG tablet TAKE 1 TABLET BY MOUTH TWICE A DAY NEEDED 2 active ondansetron (ZOFRAN) 4 MG tablet Take 1 tablet by mouth 2 (two) times a day as needed. 2 active phenazopyridine (PYRIDIUM) 200 MG tablet Take 1 tablet (200 mg total) by mouth 3 (three) times a day in the morning, mid-day and early evening. 1 08/19/19 24 aborted clindamycin 2 % vaginal cream Insert 1 applicatorful every day by vaginal route at bedtime for 7 days. 06/17/19 25 completed metronidazole 0.75 % (37.5 mg/5 gram) vaginal gel Insert 1 applicatorful every day by vaginal route at bedtime for 5 days. 06/17/19 25 completed docusate sodium 100 mg capsule 100 MG TWICE A DAY 04/24/20 24 completed doxycycline hyclate 100 mg capsule TAKE ONE CAPSULE TWICE DAILY FOR FIRST DAY, THEN ONCE DAILY FOR 7 DAYS 04/24/20 24 completed fluconazole 150 mg tablet TAKE 1 TABLET BY MOUTH ONCE. MAY TAKE 2ND PILL 2 DAYS LATER IF SYMPTOMS PERSIST 04/24/20 24 completed fludrocortisone 0.1 mg tablet TAKE 1 TABLET BY MOUTH TWICE A DAY 04/24/20 24 completed levocetirizine 5 mg tablet TAKE 1 TABLET BY MOUTH EVERY DAY IN THE EVENING 30 DAYS 04/24/20 24 completed medroxyprogesterone 150 mg/mL intramuscular syringe 1 ML INJECTED ONCE EVERY 3 MONTHS INTRAMUSCULAR 04/24/20 24 completed ondansetron 4 mg disintegrating tablet PLEASE SEE ATTACHED FOR DETAILED DIRECTIONS 04/24/20 24 completed oxycodone 5 mg tablet TAKE 1 OR 2 TABLETS BY MOUTH EVERY 4 HOURS NEEDED FOR MODERATE TO SEVERE PAIN 04/24/20 24 completed metronidazole 500 mg tablet TAKE 1 TABLET BY MOUTH TWICE A DAY DO NOT CONSUME ALCOHOL WHILE TAKING THIS PRODUCT 05/20/19 24 completed escitalopram 10 mg tablet active escitalopram (LEXAPRO) 10 mg tablet Take 1 tablet (10 mg total) by mouth 1 (one) time each day. active medroxyPROGESTERone (DEPO-PROVERA) 150 mg/mL injection Inject into the muscle every 3 (three) months active Allergies Allergen Reaction Severity Comment Documented Date Source Statu s METRONIDAZOLE vomiting moderate [facility] Problems Problem Status Onset Date Problem Type Date of Resolution Source Rectal bleeding active 2024-07-[address] [facility] Anxiety active 2024-06-18 ProblemAct [facility] Abdominal pain, unspecified abdominal location active [facility] Ble[facility] per rectum active [facility] 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[facility] Melanocytic nevus of scalp active 2019-10-20 Problem[facility] Knee pain, bilateral active 2018-08-18 Problem[facility] Thyroid nodule active 2022-01-18 ProblemAct [facility] 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 ProblemAct [facility] Closed fracture of neck of radius active 2014-01-05 ProblemAct [facility] Immunizations Vaccine Date Source Lot Number Status Influenza, split virus, triv alent, preservative 03/18/2024 [facility] [id number] completed Influenza, split virus, triv alent, preservative 03/10/2023 [facility] [id number] completed Influenza, split virus, trivalent, PF 03/14/2021 [facility] [id number] completed Pfizer SARS-CoV-2 COVID-19, mRNA, LNP-S, preservative free 09/15/2020 [facility] [id number] completed Pfizer SARS-CoV-2 COVID-19, mRNA, LNP-S, preservative free [facility]/[address] 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 [facility] 06/28/2024 Ambulatory Pelvic and perineal pain Pelvic and perineal pain [facility], [facility] 06/18/2024 Ambulatory 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) w/o 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) w/o 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 [facility] 04/27/2024 Emergency BLOOD IN STOOL, NAUSEA BLOOD IN STOOL, NAUSEA [facility] 04/13/2024 [facility] 02/19/2024 Emergency Acquired absence of other specified parts of digestive tract Acquired absence of other specified parts of digestive tract [facility] 01/13/2024 Inpatient [facility] 12/18/2023 Emergency UPPER RIGHT QUADRANT SHARP PAIN UPPER RIGHT QUADRANT SHARP PAIN [facility] 12/18/2023 Ambulatory Illness Illness [place] 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 [facility] 05/21/2023 Emergency Chest pain, unspecified Chest pain, unspecified [facility] 02/27/2023 Ambulatory Contact with and (suspected) exposure to covid-19 [facility] 10/20/2022 Ambulatory Acute nasopharyn gitis (common cold) [facility] 09/20/2022 Emergency Unspecified [facility]do [facility]22 Ambulatory Autoimmune thyroiditis [facility] 08/12/2022 Emergency LOW BLOOD PRESSURE,DIZZINESS, VISION BLACK LOW BLOOD PRESSURE,DIZZINESS,VIS ION BLACK [facility] 04/29/2022 Ambulatory [facility] 01/27/2022 Ambulatory [facility] 01/18/2022 Ambulatory Acute cystitis w ith hematuria [facility] 12/31/2021 Ambulatory [facility] 09/11/2021 Ambulatory [facility] 07/19/2021 Care Team Organization Name Specialty Phone Email Start Date End [facility] 08/20/2024 [facility] 08/17/2024 [facility] 08/05/2024 [facility] 08/05/2024 [facility] 07/31/2024 [facility] 04/27/2024 [facility] No provided Primary Care 02/20/2024 [facility] 12/19/2023 07/31/2024 [facility] 12/18/2023 [facility] 09/02/2023 024 [facility] 09/02/2023 024 [facility] 07/21/2023 [facility] 07/21/2023 [facility] 05/21/202305/21 [facility], [facility] 05/21/2023 [facility] 03/20/2023 024 [facility] 02/28/2023 08/28/2024 [facility] 02/27/2023 02/27/2023 [facility] remember Patient Primary Care 04/30/2022 [facility] Patient remember Primary Care 04/29/2022 [facility] Unattributed Primary Care 03/29/2022 024 [facility] [place] [facility] 01/27/2022 [facility] [place] [facility] 12/31/2021 08/04/2024 [facility] 12/31/2021
--- OUTSIDE RECORDS SUMMARY | 2024-09-12 18:28 | XMS_ITS ---
Author Organization [facility] Address [address] [place], [place] [id number] Care Team Providers Care Bulk Filler Name Role Phone KAREY PATEL Primary Care Provider Medications Medication SIG (Take, Route, Frequency, Duration) Notes Start Date End Date Status medroxyPROGESTERone Acetate 150 MG/ML 1 ML INJECTED ONCE EVERY 3 MONTHS INTRAMUSCULAR for 84 Active Pantoprazole Sodium 20 MG 1 tablet Orall y Once a day Active Lexapro 10 MG 1 tablet Orally Once a day Active Encounters Encounter Location Date Provider Diagnosis [facility] [address] [place] [id number] 09/10/2024 KAREY PATEL Encounter for contraceptive management, unspecified Z30.9 Assessments Encounter Date Diagnosis (ICD Code) Assessment Notes Treatment Notes Treatment Clinical Notes Section Notes 09/10/2024 Encounter for contraceptive management, unspecified (ICD-10 - Z30.9) Plan Of Treatment No Information Medications Administered Medication Instructions Date of Administration Dosage Notes depo 09/10/2024 0.5 mL Progress Notes * Elvira LIZARRAGADOB: 3 (24 yo F)Acc No.[id number]:09/10/2024 Progress Note Patient:?Yassine LIZARRAGAsey Provider:?Karey Patel :2000???Age:24 Y???Sex:Female D ate:09/10/2024 Address:[address] [place], [id number] Subjective: * Chief Complaints: * ??? * HPI: ???Constitutional:? Pt. is ehre for depo shot. * Medical History:? * Medications:?Taking Lexapro 10 MG Tablet 1 tablet Orally Once a day , Taking Pantoprazole Sodium 20 MG Tablet Delayed Release 1 tablet Orally Once a day , Taking medroxyPROGESTERone Acetate 150 MG/ML Suspension Prefilled Syringe 1 ML INJECTED ONCE EVERY 3 MONTHS INTRAMUSCULAR Objective: * Vitals:? * Examination: ???General Examination: ?SKIN:?depo shot given in the right deltoid..? Therapeutic Interventions: Assessment: * Assessment: 1.?Encounter for contracepti ve management, unspecified - Z30.9 (Primary)??? Plan: * Treatment: * Therapeutic Injections:? depo : 0.5 mL given by KAREY PATEL MD * Procedure Codes:?13796 THER/ PROPH/DIAG INJ, SC/IM, J1050 Medroxyprogesterone inj * Images: Billing Information: * Visit Code:? * Procedure Codes:? 39026 THER/PROPH/DIAG INJ, SC/IM. J1050 Medroxyprogesterone inj. * Sign off status: Completed true * Provider:?Karey Patel Date:? Generated for Maryan mccormick/Judi/eTransmitting on:?09/12/2024 06:28 PM EDT History and Physical Notes * HPI (History of Present Illness) Category Sub-Category Detail Notes Category Not es Constitutional Pt. is ehre f or depo shot Examination Category Sub-Category Detail Notes Category Not es General Examination SKIN: depo shot given in th e right deltoid.
--- OUTSIDE RECORDS SUMMARY | 2024-09-12 18:28 | XMS_ITS | Encounter Summary ---
Author Organization [facility] Address [address] [place] [address] Care Team Providers Care Sectionizer Name Role Phone Giuseppe Lee MD Primary Care Provider Giuseppe Lee MD Unavailable [phone] Encounter Details Date Type Department Care Team (Late st Contact Info) Description 04/30/2024 Scanned Document [facility] [address] [phone] Provider, Maya, [address] [place] [address] Social History Tobacco Use Types Packs/Day Years [...] on filedocumented in this encounter Care Teams Sectionizer Relationship Specialty Start Date End Date Giuseppe Lee MD [address] [place] [address] PCP - General Family Medicine 08/01/20 Giuseppe Lee MD [address] [place] [address] PCP - [employer] Attributed 05/19/22 documented as of this encounter
--- OUTSIDE RECORDS SUMMARY | 2024-09-12 18:28 | XMS_ITS ---
Author Organization [facility] Address [address] [place], [place] [id number] Care Team Providers Care Professor Of Spanish Name Role Phone KAREY PATEL Primary Care Provider Encounters Encounter Location Date Provider Diagnosis [facility] [address] [place], [place] [phone] 08/04/2024 KAREY PATEL Plan Of Treatment No Information Progress Notes * Elvira LIZARRAGADOB: 3 (23 yo F)Acc No.[id number]:08/04/2024 Patient:?Elvira LIZARRAGA :2000???Age:23 Y???Sex:Female Address:[address], [place] [address] * true * Date:? Generated for Shlomoi anny/Judi/eTransmitting on:?09/12/2024 06:27 PM EDT
--- OUTSIDE RECORDS SUMMARY | 2024-09-12 18:28 | XMS_ITS | Encounter Summary ---
Author Organization [facility] Address [address] [place] [address] Care Team Providers Care Line O Scribe Operator Name Role Phone Rao Katy HOLMAN Primary Care Provider Aki Liang MD Unavailable [phone] Katarina Ma DO Unavailable [phone] Aki Reyes MD Unavailable [phone] PlymouthKatarina rubio DO Unavailable [phone] Pcp, No Primary Care Provider Unavailabl e Giuseppe Lee MD Primary Care Provider Giuseppe Lee MD Unavailable [phone] Giuseppe Lee MD Unavailable [phone] Giuseppe Lee MD Unavailable [phone] Giuseppe Lee MD Unavailable [phone] Encounter Details Date Type Department Care Team (Late st Contact Info) Description 08/24/2018 Scanned Document [facility] [address] [place] [address] Pediatric Orthopedic Surgery, Scan Social History Tobacco Use [...] on filedocumented in this encounter Care Teams Line O Scribe Operator Relationship Specialty Start Date End Date Katy Yeh APRN PCP - General Family Medicine 04/06/18 03/15/20 Aki Reyes MD [address] [place], [place] [phone] PCP - [employer] Attributed 02/16/19 05/18/19 Katarina Ma DO [address] [place] [address] PCP - [employer] Attributed 05/19/19 08/17/19 Aki Reyes MD [address] [place] [address] PCP - [employer] Attributed 08/18/19 11/16/19 Katarina Ma DO [address] [place] [address] PCP - [employer] Attributed 11/17/19 08/16/20 Pcp, No PCP - General General Medicine 05/29/20 07/31/20 Giuseppe Lee MD [address] [place] [address] PCP - General Family Medicine 08/01/20 Giuseppe Lee MD [address] [facility] [place] [address] PCP - [employer] Attributed 08/17/20 04/17/21 Giuseppe Lee MD [address] [place] [address] PCP - [employer] Attributed 09/16/21 10/16/21 Giuseppe Lee MD [address] [place] [address] PCP - [employer] Attributed 11/16/21 03/18/22 Giuseppe Lee MD [address] [place] [address] PCP - [employer] Attributed 05/19/22 documented as of this encounter
[2024-09-12] MEDS: 0.9 % Sodium Chloride 1,000 ML 999 ML IV ×2 (19:19→19:38)
[2024-09-12] MEDS: iohexoL 350 MG/ML 100 ML INFUS..BTL 85 ML IV (19:29)
[2024-09-12 19:32] LABS: Beta-Hydroxybutyrate 0.09 mmol/L (0.02-0.27); Bilirubin Direct 0.6 mg/dL (0.0-0.5)
[2024-09-12 19:36] LABS: Lactic Acid 1.8 mmol/L (0.5-2.0)
[2024-09-12 20:22] VITALS: BP 114/77; PULSE 89; RESP 16; TEMP 37.4; O2SAT 97
[2024-09-12] MEDS: diphenhydrAMINE HCL 50 MG/ML VIAL 12.5 MG IVPUSH (20:28)
[2024-09-12] MEDS: droPERidol 5 MG/2 ML VIAL 1.25 MG IVPUSH (20:28)
[2024-09-12 21:54] VITALS: BP 103/63; PULSE 107; RESP 18; TEMP 37.6; O2SAT 100
[2024-09-12 21:55] VITALS: BP 103/63; PULSE 107; RESP 18; TEMP 37.6; O2SAT 100
== END 2024-09-12 21:55 | disposition home or self-care (01) ==
PROVIDERS: Physician Assistant; Emergency Provider Emergency Medicine; PCP Family Medicine
DX: R11.2 Nausea with vomiting, unspecified (principal); R10.11 Right upper quadrant pain; R19.7 Diarrhea, unspecified; R00.0 Tachycardia, unspecified; Z03.818 Encounter for observation for suspected exposure to other biological agents ruled out; K44.9 Diaphragmatic hernia without obstruction or gangrene; K21.9 Gastro-esophageal reflux disease without esophagitis; Z90.49 Acquired absence of other specified parts of digestive tract; Z79.899 Other long term (current) drug therapy
CPT/HCPCS: 0241U; 36415; 74177; 76705; 80053; 81001; 81025; 82010; 82248; 83605; 83690; 84702; 85025; 96361; 96374; 96375; 99284; J1200; J1790; Q9967

== ENCOUNTER → 2024-09-12 18:19 | Outpatient (BNV) | payer BC, SELFPAY | PROVIDERS: Emergency Provider Emergency Medicine; PCP Family Medicine; Visit Provider Student in an Organized Health Care Education/Training Program | DX: R10.9 Unspecified abdominal pain (principal); R10.13 Epigastric pain | CPT/HCPCS: 74177; 76705 ==